=== PATIENT | male | born 1945 | race Caucasian/White ===

== ENCOUNTER 2019-01-02 16:15 | Inpatient (IN) | payer MEDICARE ==
[~2019-01-02] VITALS: Ht 182.9 cm; Wt 150.8 kg
[~2019-01-02 16:15] MED LIST: PIPERACILLIN/TAZOBACTAM 3.375 GM in IV NORMAL SALINE 50ML 50 ML IV SCH
[2019-01-02] MEDS ORDERED: FUROSEMIDE 40 MG/4 ML VIAL. IVP ONE (17:00)
[2019-01-02] MEDS ORDERED: PIPERACILLIN/TAZOBACTAM 3.375 GM in IV NORMAL SALINE 50ML 50 ML IV ONE (17:15)
[2019-01-02] MEDS ORDERED: VANCOMYCIN 1GM IVPB FOR OMNI 250 ML IV ONE (17:15)
--- NOTE | 2019-01-02 17:15 | PHYS DOC ---
Adult General Chief Complaint Chief Complaint: OTHER COMPLAINTS HPI HPI 73-year-old male presents with scrotal swelling and pain. He's noticed some redness to the scrotum. He's also been unable to urinate for the last 12-24 hours he states he just leaks urine out. He states he has tried to use some emollient to help with the swelling but this has made it worse. He denies any fever chills or sweats. He states he is not sure if he is a diabetic he's never been tested that he knows of.[] (PETR GLOVER DO) Review of Systems Review of Systems Constitutional: Denies fever or chills [] Eyes: Denies change in visual acuity, redness, or eye pain [] HENT: Denies nasal congestion or sore throat [] Respiratory: Denies cough or shortness of breath [] Cardiovascular: No additional information not addressed in HPI [] GI: Denies abdominal pain, nausea, vomiting, bloody stools or diarrhea [] : Scrotal swelling[] Musculoskeletal: Denies back pain or joint pain [] Integument: Denies rash or skin lesions [] Neurologic: Denies headache, focal weakness or sensory changes [] Endocrine: Denies polyuria or polydipsia [] All other systems were reviewed and found to be within normal limits, except as documented in this note. (PETR GLOVER DO) Current Medications Current Medications Current Medications Medications (Trade) Dose Ordered Sig/Harsha Start Time Stop Time Status Last Admin Dose Admin Furosemide (Lasix) 80 mg 1X ONCE 01/02/19 17:00 01/02/19 17:01 DC 01/02/19 17:40 80 MG Piperacillin Sod/ Tazobactam Sod 3.375 gm/Sodium Chloride 50 ml @ 100 mls/hr 1X ONCE 01/02/19 17:15 01/02/19 17:44 DC 01/02/19 18:35 100 MLS/HR Sodium Chloride 1,000 ml @ 1,000 mls/hr 1X ONCE 01/02/19 19:30 01/02/19 20:29 01/02/19 19:48 1,000 MLS/HR Vancomycin HCl 250 ml @ 250 mls/hr 1X ONCE 01/02/19 17:15 01/02/19 18:14 DC 01/02/19 19:28 250 MLS/HR (VICTORINO MCMANUS MD) Allergies Allergies Allergies Coded Allergies Type Severity Reaction Last Updated Verified No Known Drug Allergies 06/21/14 No (VICTORINO MCMANUS MD) Physical Exam Physical Exam Constitutional: Well developed, well nourished, moderate distress, non-toxic appearance. [] HENT: Normocephalic, atraumatic, bilateral external ears normal, oropharynx moist, no oral exudates, nose normal. [] Eyes: PERRLA, EOMI, conjunctiva normal, no discharge. [] Neck: Normal range of motion, no tenderness, supple, no stridor. [] Cardiovascular:Heart rate regular rhythm, no murmur [] Lungs & Thorax: Bilateral breath sounds clear to auscultation [] Abdomen: Bowel sounds normal, soft, no tenderness, no masses, no pulsatile masses. [] : Patient's scrotum is remarkably swollen and erythematous tender to touch no obvious subcutaneous air he also has significant swelling and edema of the foreskin Skin: Warm, dry, no erythema, no rash. [] Back: No tenderness, no CVA tenderness. [] Extremities: No tenderness, no cyanosis, no clubbing, ROM intact, no edema. [] Neurologic: Alert and oriented X 3, normal motor function, normal sensory functi on, no focal deficits noted. [] Psychologic: Anxious[] (PETR GLOVER DO) Current Patient Data Vital Signs Vital Signs Date Time Temp Pulse Resp B/P (MAP) Pulse Ox O2 Delivery O2 Flow Rate FiO2 01/02/19 18:21 100 184/101 (128) 95 Room Air 01/02/19 18:02 24 01/02/19 16:18 97.9 97.9 (VICTORINO MCMANUS MD) Lab Values Laboratory Tests Test 01/02/19 17:25 01/02/19 17:37 White Blood Count 9.5 x10^3/uL (4.0-11.0) Red Blood Count 4.47 x10^6/uL (4.30-5.70) Hemoglobin 12.9 g/dL (13.0-17.5) L Hematocrit 38.8 % (39.0-53.0) L Mean Corpuscular Volume 87 fL (79-100) Mean Corpuscular Hemoglobin 29 pg (25-35) Mean Corpuscular Hemoglobin Concent 33 g/dL (31-37) Red Cell Distribution Width 17.7 % (11.5-14.5) H Platelet Count 348 x10^3/uL (140-400) Neutrophils (%) (Auto) 85 % (31-73) H Lymphocytes (%) (Auto) 8 % (24-48) L Monocytes (%) (Auto) 6 % (0-9) Eosinophils (%) (Auto) 1 % (0-3) Basophils (%) (Auto) 1 % (0-3) Neutrophils # (Auto) 8.1 x10^3/uL (1.8-7.7) H Lymphocytes # (Auto) 0.7 x10^3/uL (1.0-4.8) L Monocytes # (Auto) 0.5 x10^3/uL (0.0-1.1) Eosinophils # (Auto) 0.1 x10^3/uL (0.0-0.7) Basophils # (Auto) 0.1 x10^3/uL (0.0-0.2) Segmented Neutrophils % 87 % (35-66) H Lymphocytes % 9 % (24-48) L Monocytes % 3 % (0-10) Basophils % 1 % (0-3) Platelet Estimate Adequate (ADEQUATE) Sodium Level 146 mmol/L (136-145) H Potassium Level 4.1 mmol/L (3.5-5.1) Chloride Level 109 mmol/L (98-107) H Carbon Dioxide Level 21 mmol/L (21-32) Anion Gap 16 (6-14) H Blood Urea Nitrogen 21 mg/dL (8-26) Creatinine 2.2 mg/dL (0.7-1.3) H Estimated GFR (Cockcroft-Gault) 29.3 BUN/Creatinine Ratio 10 (6-20) Glucose Level 111 mg/dL (70-99) H Lactic Acid Level 2.0 mmol/L (0.4-2.0) Calcium Level 10.8 mg/dL (8.5-10.1) H Magnesium Level 1.7 mg/dL (1.8-2.4) L Total Bilirubin 0.6 mg/dL (0.2-1.0) Aspartate Amino Transferase (AST) 14 U/L (15-37) L Alanine Aminotransferase (ALT) 15 U/L (16-63) L Alkaline Phosphatase 82 U/L (46-116) Total Protein 7.6 g/dL (6.4-8.2) Albumin 3.7 g/dL (3.4-5.0) Albumin/Globulin Ratio 0.9 (1.0-1.7) L Urine Collection Type U cath Urine Color Yellow Urine Clarity Clear Urine pH 5.0 Urine Specific [place] 1.015 Urine Protein Negative mg/dL (NEG-TRACE) Urine Glucose (UA) Negative mg/dL (NEG) Urine Ketones (Stick) Negative mg/dL (NEG) Urine Blood Negative (NEG) Urine Nitrite Negative (NEG) Urine Bilirubin Negative (NEG) Urine Urobilinogen Dipstick 0.2 mg/dL (0.2 mg/dL) Urine Leukocyte Esterase Large (NEG) Urine RBC Occ /HPF (0-2) Urine WBC 20-40 /HPF (0-4) Urine Transitional Epithelial Cells Occ /LPF Urine Bacteria Few /HPF (0-FEW) Urine Hyaline Casts Moderate /HPF Urine Mucus Marked /LPF Laboratory Tests 01/02/19 17:25 Laboratory Tests 01/02/19 17:25 (VICTORINO MCMANUS MD) EKG EKG [] (PETR GLOVER DO) Radiology/Procedures Radiology/Procedures [] (PETR GLOVER DO) Course & Med Decision Making Course & Med Decision Making Pertinent Labs and Imaging studies reviewed. (See chart for details) [ED course: Evaluation reveals an elderly overweight male with a significantly swollen and erythematous scrotum that is very tender to palp. Certainly the diagnosis of Johanna's gangrene has to be taken into consideration. Hopefully this is third spacing of fluids however starting treatment aggressively with IV antibiotics blood cultures and lactic acid. He will also have an ultrasound and a CT of his scrotum to make sure there is no evidence of a necrotizing fasciitis I will pass this patient off to Dr. Victorino Mcmanus at 5:30 PM for final dis position.] (PETR GLOVER DO) Course & Med Decision Making TECHNIQUE: Multiple axial CT images of the pelvis were obtained without intravenous contrast. Coronal and sagittal reformats are provided. FINDINGS: There is aneurysm of the infrarenal abdominal aorta measuring 4.0 x 3.8 cm. Aneurysm of the right common iliac artery measures 3.0 cm. No pathologically enlarged pelvic lymph nodes. There is no free fluid or free intraperitoneal air. Small and large bowel loops are normal in caliber. No evidence for bowel obstruction. Mild diverticulosis. Appendix is normal. Urinary bladder wall is mildly thickened. Mcgraw catheter is in place. Prostate is enlarged measuring 6.3 x 5.8 cm in transaxial dimensions. Small left inguinal hernia containing fat. Diffuse scrotal swelling with significant subcutaneous edema and no gas is identified within the subcutaneous soft tissues. No suspicious osseous abnormality is identified. IMPRESSION: 1. Diffuse scrotal soft tissue swelling with subcutaneous edema most suggestive of cellulitis. No CT evidence for Johanna gangrene. 2. Abdominal aortic aneurysm measuring 4.0 x 3.8 cm. 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 3. Prostatomegaly. 4. Small left inguinal hernia containing fat. Electronically signed by: Rad Aldrich MD (01/02/2019 7:15 PM) [facility] DICTATED and SIGNED BY: RAD ALDRICH MD DATE: 01/02/191914 I EXAMINED THE PATIENT THERE IS NO CLINICAL INVOLVEMENT OF PERINEUM. FIVE DAYS OF SYMPTOMS, CLINICALLY STABLE. NO CT EVIDENCE OF GAS I DOUBT FOURNIERS, D/W SEGURA, IV ABX INITIATED ROUTINE UROLOGY CONSULT NOTED (VICTORINO MCMANUS MD) Dragon Disclaimer Dragon Disclaimer This electronic medical record was generated, in whole or in part, using a voice recognition dictation system. (PETR GLOVER DO) Departure Departure Impression: Primary Impression: Cellulitis, scrotum Disposition: ADMITTED INPATIENT Admitting Physician: Kalia Segura (VICTORINO MCMANUS MD) Condition: STABLE Referrals: KALIA SEGURA MD (PCP) PETR GLOVER DO Jan 02, 2019 17:15 VICTORINO MCMANUS MD Jan 02, 2019 19:55
[2019-01-02 17:36] LABS: BASO # 0.1 x10^3/uL (0.0-0.2); BASO % 1 % (0-3); EOS # 0.1 x10^3/uL (0.0-0.7); EOS % 1 % (0-3); HEMATOCRIT 38.8 % (39.0-53.0); HEMOGLOBIN 12.9 g/dL (13.0-17.5); LYMPH # 0.7 x10^3/uL (1.0-4.8); LYMPH % 8 % (24-48); MEAN CORPUSCULAR HEMOGLOBIN 29 pg (25-35); MEAN CORPUSCULAR HGB CONC 33 g/dL (31-37); MEAN CORPUSCULAR VOLUME 87 fL (79-100); MONO # 0.5 x10^3/uL (0.0-1.1); MONO % 6 % (0-9); NEUT # 8.1 x10^3/uL (1.8-7.7); NEUT % 85 % (31-73); PLATELET COUNT 348 x10^3/uL (140-400); RED BLOOD COUNT 4.47 x10^6/uL (4.30-5.70); RED CELL DISTRIBUTION WIDTH 17.7 % (11.5-14.5); WHITE BLOOD COUNT 9.5 x10^3/uL (4.0-11.0)
[2019-01-02 17:52] LABS: % BASOS 1 % (0-3); % LYMPHS 9 % (24-48); % MONOS 3 % (0-10); % SEGS 87 % (35-66)
[2019-01-02 17:55] LABS: PLT ESTIMATE ADEQUATE (ADEQUATE)
[2019-01-02 17:57] LABS: BILIRUBIN,URINE NEGATIVE (NEG); CLARITY,URINE CLEAR; COLOR,URINE YELLOW; NITRITE,URINE NEGATIVE (NEG); PROTEIN,URINE NEGATIVE (NEG-TRACE); UROBILINOGEN,URINE 0.2 mg/dL (0.2 mg/dL)
[2019-01-02 18:02] LABS: CALCIUM 10.8 mg/dL (8.5-10.1); CREATININE 2.2 mg/dL (0.7-1.3); GFR 29.3; POTASSIUM 4.1 mmol/L (3.5-5.1)
[2019-01-02 18:07] LABS: ALBUMIN 3.7 g/dL (3.4-5.0); ALBUMIN/GLOBULIN RATIO 0.9 (1.0-1.7); MAGNESIUM 1.7 mg/dL (1.8-2.4); TOTAL BILIRUBIN 0.6 mg/dL (0.2-1.0); TOTAL PROTEIN 7.6 g/dL (6.4-8.2)
[2019-01-02 18:12] LABS: BACTERIA,URINE FEW /HPF (0-FEW); HYALINE CASTS, URINE MODERATE /HPF; RBC,URINE OCC /HPF (0-2); WBC,URINE 20-40 /HPF (0-4)
--- NOTE | 2019-01-02 18:57 | RAD ---
TESTICULAR/SCROTUM: 01/02/2019 6:16 PM INDICATION: 73 years old Male. Swollen testicles. COMPARISON: None. FINDINGS: Right: Extensive subcutaneous edema is identified with skin thickening measuring up to 8 mm. Testicle: Normal in echotexture without focal lesion. Size: 4.0 x 2.7 x 2.4 cm. Flow: Normal color Doppler flow pattern. Epididymis: 5 mm right epididymal cyst is identified. Hydrocele: None. Varicocele: None. Left: Testicle: Normal in echotexture without focal lesion. Size: 3.7 x 2.6 x 2.5 cm. Flow: Normal color Doppler flow pattern. Epididymis: Normal in size and echotexture without focal lesion. Hydrocele: None. Varicocele: None. IMPRESSION: Perfusion is noted the testicles bilaterally at the time of imaging. Extensive subcutaneous edema and skin thickening is identified which is nonspecific and may be associated with cellulitis or systemic inflammation. No definite gas is identified by ultrasound although plain films or CT may be more specific. Electronically signed by: Alpa Narvaez MD (01/02/2019 6:54 PM) [facility]
--- NOTE | 2019-01-02 19:18 | RAD ---
PQRS Compliance Statement: One or more of the following individualized dose reduction techniques were utilized for this examination: 1. Automated exposure control 2. Adjustment of the mA and/or kV according to patient size 3. Use of iterative reconstruction technique CT pelvis without contrast 01/02/2019 INDICATION: Scrotal swelling. COMPARISON: Testicular ultrasound January 02, 2019 TECHNIQUE: Multiple axial CT images of the pelvis were obtained without intravenous contrast. Coronal and sagittal reformats are provided. FINDINGS: There is aneurysm of the infrarenal abdominal aorta measuring 4.0 x 3.8 cm. Aneurysm of the right common iliac artery measures 3.0 cm. No pathologically enlarged pelvic lymph nodes. There is no free fluid or free intraperitoneal air. Small and large bowel loops are normal in caliber. No evidence for bowel obstruction. Mild diverticulosis. Appendix is normal. Urinary bladder wall is mildly thickened. Mcgraw catheter is in place. Prostate is enlarged measuring 6.3 x 5.8 cm in transaxial dimensions. Small left inguinal hernia containing fat. Diffuse scrotal swelling with significant subcutaneous edema and no gas is identified within the subcutaneous soft tissues. No suspicious osseous abnormality is identified. IMPRESSION: 1. Diffuse scrotal soft tissue swelling with subcutaneous edema most suggestive of cellulitis. No CT evidence for Johanna gangrene. 2. Abdominal aortic aneurysm measuring 4.0 x 3.8 cm. 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 3. Prostatomegaly. 4. Small left inguinal hernia containing fat. Electronically signed by: Alpa Narvaez MD (01/02/2019 7:15 PM) [facility]
[2019-01-02] MEDS ORDERED: IV NORMAL SALINE 1000ML BAG 1,000 ML IV ONE (19:30)
[2019-01-02] MEDS ORDERED: MORPHINE SULFATE 2 MG/ML VIAL. IV PRN (20:15)
[2019-01-02 21:40] VITALS: BP 153/102
[2019-01-02 23:00] VITALS: BP 158/100
[2019-01-02] MEDS ORDERED: VANCOMYCIN 1 GM in IV NORMAL SALINE 250ML 250 ML IV ONE (23:00)
[2019-01-03] MEDS: VANCOMYCIN PER PHARMACY MC PRN (00:28)
--- NOTE | 2019-01-03 00:29 | NUR ---
Pharmacy Vancomycin Dosing Note S:Consulted to monitor and dose vancomycin started 01/02/19. O:ARUN MALONE is a 73 year old M with Cellulitis . Height: 6 feet, 0 inches Weight: 140.049511 kg [place] Body Weight: 77.60 Adjusted Body Weight: 102.56 Dosing Weight: Actual Other Antibiotics: ZOSYN 3.375 GM Q6H LABS: Last BUN: 21 Last Creatinine: 2.2 Creatinine Clearance: 42 mL/min Last WBC: 9.5 Last Procalcitonin: Tmax (past 24 hours): Microbiology: I/O: Drug Levels: Last level: on at Last dose given 01/03/19 at 2200 Vancomycin Dosing: Loading Dose: 2000 mg x1 Dosing Weight: Actual Target Trough: 10-20 A: Based on: WT AND CRCL P: 1. Begin Vancomycin 2000 mg IV q24h 2. Follow up Trough level on 01/04/19 at 2130 3. Pharmacy will continue to monitor, follow and adjust therapy as needed. ALBINA HINOJOSA RPH, 01/03/19 0029 Signed: 01/03/19 at 0029 by ALBINA HINOJOSA RPH PHA
[2019-01-03] MEDS: PIPERACILLIN/TAZOBACTAM 3.375 GM in IV NORMAL SALINE 50ML 50 ML IV SCH ×5 (01:13→23:49)
[2019-01-03] MEDS: IV NORMAL SALINE 1000ML BAG 1,000 ML IV SCH ×2 (01:13→08:58)
[2019-01-03 01:33] LABS: BASO # 0.1 x10^3/uL (0.0-0.2); BASO % 1 % (0-3); EOS # 0.2 x10^3/uL (0.0-0.7); EOS % 1 % (0-3); HEMATOCRIT 39.1 % (39.0-53.0); HEMOGLOBIN 12.9 g/dL (13.0-17.5); LYMPH % 8 % (24-48); MEAN CORPUSCULAR HEMOGLOBIN 29 pg (25-35); MEAN CORPUSCULAR HGB CONC 33 g/dL (31-37); MEAN CORPUSCULAR VOLUME 87 fL (79-100); MONO # 0.9 x10^3/uL (0.0-1.1); MONO % 7 % (0-9); NEUT # 10.8 x10^3/uL (1.8-7.7); NEUT % 83 % (31-73); PLATELET COUNT 350 x10^3/uL (140-400); RED BLOOD COUNT 4.48 x10^6/uL (4.30-5.70); RED CELL DISTRIBUTION WIDTH 16.8 % (11.5-14.5)
[2019-01-03 01:46] LABS: CALCIUM 10.1 mg/dL (8.5-10.1); CREATININE 2.1 mg/dL (0.7-1.3); GFR 30.9; POTASSIUM 3.9 mmol/L (3.5-5.1)
[2019-01-03 03:00] VITALS: BP 149/99
[2019-01-03] MEDS ORDERED: METO-247 PO (03:31)
[2019-01-03] MEDS ORDERED: LISI-334 PO (03:31)
[2019-01-03] MEDS ORDERED: ASPI325T8 PO (03:31)
[2019-01-03] MEDS ORDERED: AMLO2.5T5 PO (03:31)
[2019-01-03] MEDS ORDERED: ATOR20TA58 PO (03:31)
[2019-01-03] MEDS ORDERED: HEPARIN for SUB-Q USE 5,000 UNIT/ML VIAL. SQ SCH (09:00)
--- NOTE | 2019-01-03 09:16 | PDOC2 ---
JANACHRISTOPHEROlayinka Vela APRN 01/03/19 0916: UROLOGY CONSULT Date of Consult Date of Consult DATE: 01/03/19 TIME: 09:15 Reason for Consult Reason for Consult: Hematuria and Urinary retention Identification/Chief Complaint Chief Complaint Hematuria, urinary retention Source Source: Chart review, Patient History of Present Illness Reason for Visit: This pleasant 73 year old gentleman presented through the ER for Scrotal edema, hematuria and inability to urinate for 12-24 hours. He reports this is the first time anything like this has happened to him and he normally does not have any trouble with LUTS or dysuria; this is also the first time he has had any hematuria. He has no history of BPH or prostate cancer that he is aware of. However, his uncle did have prostate cancer and he thinks that his father may have had it, but he is not sure. He has no history of kidney stones or kidney problems that he is aware of and the catheter seems to be working well and is not bothering him this morning. Social History Quit (12 years ago; prior to that smoked 1-1.5 packs per day) ALCOHOL: rare Drugs: None Current Problem List Problems: (1) Scrotal swelling (2) Cellulitis, scrotum Current Medications Current Medications Current Medications Furosemide (Lasix) 80 mg 1X ONCE IVP Last administered on 01/02/19at 17:40; Start 01/02/19 at 17:00; Stop 01/02/19 at 17:01; Status DC Heparin Sodium (Porcine) (Heparin Sodium) 5,000 unit Q12HR SQ ; Start 01/03/19 at 09:00 Morphine Sulfate (Morphine Sulfate) 2 mg PRN Q2HR PRN IV PAIN; Start 01/02/19 at 20:15; Stop 01/03/19 at 20:14 Piperacillin Sod/ Tazobactam Sod 3.375 gm/Sodium Chloride 50 ml @ 100 mls/hr 1X ONCE IV Last administered on 01/02/19at 18:35; Start 01/02/19 at 17:15; Stop 01/02/19 at 17:44; Status DC Piperacillin Sod/ Tazobactam Sod 3.375 gm/Sodium Chloride 50 ml @ 100 mls/hr Q6HRS IV Last administered on 01/03/19at 01:13; Start 01/03/19 at 00:00 Sodium Chloride 1,000 ml @ 75 mls/hr [id number] IV Last administered on 01/03/19at 01:13; Start 01/02/19 at 20:04; Stop 01/03/19 at 20:03 Sodium Chloride 1,000 ml @ 1,000 mls/hr 1X ONCE IV Last administered on at 19:48; Start 01/02/19 at 19:30; Stop 01/02/19 at 20:29; Status DC Vancomycin HCl 250 ml @ 250 mls/hr 1X ONCE IV Last administered on 01/02/19at 19:28; Start 01/02/19 at 17:15; Stop 01/02/19 at 18:14; Status DC Vancomycin HCl (Vanco Per Pharmacy) 1 each PRN DAILY PRN MC SEE COMMENTS Last administered on 01/03/19at 00:28; Start 01/02/19 at 22:45 Vancomycin HCl (Vancomycin Trough Level) 1 each 1X ONCE MC ; Start 01/04/19 at 21:30; Stop 01/04/19 at 21:31 Vancomycin HCl 1 gm/Sodium Chloride 250 ml @ 250 mls/hr 1X ONCE IV Last administered on 01/02/19at 23:42; Start 01/02/19 at 23:00; Stop 01/02/19 at 23:59; Status DC Vancomycin HCl 2 gm/Sodium Chloride 500 ml @ 250 mls/hr Q24H IV ; Start 01/03/19 at 22:00 Allergies Allergies: Coded Allergies: No Known Drug Allergies (Unverified , 06/21/14) ROS Review Of Systems: CONSTITUTIONAL: No fever or chills EYES: No recent changes SKIN: No rash or itching CARDIOVASCULAR: No chest pain, syncope, palpitations, or edema RESPIRATORY: No SOB or cough GASTROINTESTINAL: No nausea, vomiting or abdominal pain NEUROLOGICAL: No headaches or weakness ENDOCRINE: No cold or heat intolerance GENITOURINARY: No urgency or frequency of urination, + scrotal swelling and hematuria MUSCULOSKELETAL: No back pain or joint pain LYMPHATICS: No enlarged lymph nodes PSYCHIATRIC: No anxiety or depression Physical Exam Physical Exam: General: Pleasant, no acute distress, well groomed Eyes: conjunctiva anicteric, eyes full range of motion ENT: moist oral mucosa, normal dentition Neck: Trachea midline, no masses Respiratory: unlabored breathing, not using accessory muscles, Abdomen: nontender, soft, obese : +Scrotal swelling noted; unable to appreciate scrotal contents with simple exam due to this No open areas or drainage noted. + Mcgraw catheter in place draining red-tinged urine with occ small clots. Device in good working order. Skin: no rashes or skin lesions on visualized skin Psych: normal mood, affect. Alert and oriented x 3. Vitals VITALS Vital Signs Date Time Temp Pulse Resp B/P (MAP) Pulse Ox O2 Delivery O2 Flow Rate FiO2 01/03/19 03:00 98.6 88 18 149/99 (116) 95 Room Air 98.6 Labs Labs Laboratory Tests Test 01/02/19 17:25 01/02/19 17:37 01/03/19 01:25 White Blood Count 9.5 x10^3/uL (4.0-11.0) 13.0 x10^3/uL (4.0-11.0) Red Blood Count 4.47 x10^6/uL (4.30-5.70) 4.48 x10^6/uL (4.30-5.70) Hemoglobin 12.9 g/dL (13.0-17.5) 12.9 g/dL (13.0-17.5) Hematocrit 38.8 % (39.0-53.0) 39.1 % (39.0-53.0) Mean Corpuscular Volume 87 fL (79-100) 87 fL (79-100) Mean Corpuscular Hemoglobin 29 pg (25-35) 29 pg (25-35) Mean Corpuscular Hemoglobin Concent 33 g/dL (31-37) 33 g/dL (31-37) Red Cell Distribution Width 17.7 % (11.5-14.5) 16.8 % (11.5-14.5) Platelet Count 348 x10^3/uL (140-400) 350 x10^3/uL (140-400) Neutrophils (%) (Auto) 85 % (31-73) 83 % (31-73) Lymphocytes (%) (Auto) 8 % (24-48) 8 % (24-48) Monocytes (%) (Auto) 6 % (0-9) 7 % (0-9) Eosinophils (%) (Auto) 1 % (0-3) 1 % (0-3) Basophils (%) (Auto) 1 % (0-3) 1 % (0-3) Neutrophils # (Auto) 8.1 x10^3/uL (1.8-7.7) 10.8 x10^3/uL (1.8-7.7) Lymphocytes # (Auto) 0.7 x10^3/uL (1.0-4.8) 1.0 x10^3/uL (1.0-4.8) Monocytes # (Auto) 0.5 x10^3/uL (0.0-1.1) 0.9 x10^3/uL (0.0-1.1) Eosinophils # (Auto) 0.1 x10^3/uL (0.0-0.7) 0.2 x10^3/uL (0.0-0.7) Basophils # (Auto) 0.1 x10^3/uL (0.0-0.2) 0.1 x10^3/uL (0.0-0.2) Segmented Neutrophils % 87 % (35-66) Lymphocytes % 9 % (24-48) Monocytes % 3 % (0-10) Basophils % 1 % (0-3) Platelet Estimate Adequate (ADEQUATE) Sodium Level 146 mmol/L (136-145) 143 mmol/L (136-145) Potassium Level 4.1 mmol/L (3.5-5.1) 3.9 mmol/L (3.5-5.1) Chloride Level 109 mmol/L (98-107) 106 mmol/L (98-107) Carbon Dioxide Level 21 mmol/L (21-32) 25 mmol/L (21-32) Anion Gap 16 (6-14) 12 (6-14) Blood Urea Nitrogen 21 mg/dL (8-26) 22 mg/dL (8-26) Creatinine 2.2 mg/dL (0.7-1.3) 2.1 mg/dL (0.7-1.3) Estimated GFR (Cockcroft-Gault) 29.3 30.9 BUN/Creatinine Ratio 10 (6-20) Glucose Level 111 mg/dL (70-99) 119 mg/dL (70-99) Lactic Acid Level 2.0 mmol/L (0.4-2.0) 1.3 mmol/L (0.4-2.0) Calcium Level 10.8 mg/dL (8.5-10.1) 10.1 mg/dL (8.5-10.1) Magnesium Level 1.7 mg/dL (1.8-2.4) Total Bilirubin 0.6 mg/dL (0.2-1.0) Aspartate Amino Transf (AST/SGOT) 14 U/L (15-37) Alanine Aminotransferase (ALT/SGPT) 15 U/L (16-63) Alkaline Phosphatase 82 U/L (46-116) Total Protein 7.6 g/dL (6.4-8.2) Albumin 3.7 g/dL (3.4-5.0) Albumin/Globulin Ratio 0.9 (1.0-1.7) Urine Collection Type U cath Urine Color Yellow Urine Clarity Clear Urine pH 5.0 Urine Specific [place] 1.015 Urine Protein Negative mg/dL (NEG-TRACE) Urine Glucose (UA) Negative mg/dL (NEG) Urine Ketones (Stick) Negative mg/dL (NEG) Urine Blood Negative (NEG) Urine Nitrite Negative (NEG) Urine Bilirubin Negative (NEG) Urine Urobilinogen Dipstick 0.2 mg/dL (0.2 mg/dL) Urine Leukocyte Esterase Large (NEG) Urine RBC Occ /HPF (0-2) Urine WBC 20-40 /HPF (0-4) Urine Transitional Epithelial Cells Occ /LPF Urine Bacteria Few /HPF (0-FEW) Urine Hyaline Casts Moderate /HPF Urine Mucus Marked /LPF Laboratory Tests Test 01/02/19 17:25 01/02/19 17:37 01/03/19 01:25 White Blood Count 9.5 x10^3/uL (4.0-11.0) 13.0 x10^3/uL (4.0-11.0) Red Blood Count 4.47 x10^6/uL (4.30-5.70) 4.48 x10^6/uL (4.30-5.70) Hemoglobin 12.9 g/dL (13.0-17.5) 12.9 g/dL (13.0-17.5) Hematocrit 38.8 % (39.0-53.0) 39.1 % (39.0-53.0) Mean Corpuscular Volume 87 fL (79-100) 87 fL (79-100) Mean Corpuscular Hemoglobin 29 pg (25-35) 29 pg (25-35) Mean Corpuscular Hemoglobin Concent 33 g/dL (31-37) 33 g/dL (31-37) Red Cell Distribution Width 17.7 % (11.5-14.5) 16.8 % (11.5-14.5) Platelet Count 348 x10^3/uL (140-400) 350 x10^3/uL (140-400) Neutrophils (%) (Auto) 85 % (31-73) 83 % (31-73) Lymphocytes (%) (Auto) 8 % (24-48) 8 % (24-48) Monocytes (%) (Auto) 6 % (0-9) 7 % (0-9) Eosinophils (%) (Auto) 1 % (0-3) 1 % (0-3) Basophils (%) (Auto) 1 % (0-3) 1 % (0-3) Neutrophils # (Auto) 8.1 x10^3/uL (1.8-7.7) 10.8 x10^3/uL (1.8-7.7) Lymphocytes # (Auto) 0.7 x10^3/uL (1.0-4.8) 1.0 x10^3/uL (1.0-4.8) Monocytes # (Auto) 0.5 x10^3/uL (0.0-1.1) 0.9 x10^3/uL (0.0-1.1) Eosinophils # (Auto) 0.1 x10^3/uL (0.0-0.7) 0.2 x10^3/uL (0.0-0.7) Basophils # (Auto) 0.1 x10^3/uL (0.0-0.2) 0.1 x10^3/uL (0.0-0.2) Segmented Neutrophils % 87 % (35-66) Lymphocytes % 9 % (24-48) Monocytes % 3 % (0-10) Basophils % 1 % (0-3) Platelet Estimate Adequate (ADEQUATE) Sodium Level 146 mmol/L (136-145) 143 mmol/L (136-145) Potassium Level 4.1 mmol/L (3.5-5.1) 3.9 mmol/L (3.5-5.1) Chloride Level 109 mmol/L (98-107) 106 mmol/L (98-107) Carbon Dioxide Level 21 mmol/L (21-32) 25 mmol/L (21-32) Anion Gap 16 (6-14) 12 (6-14) Blood Urea Nitrogen 21 mg/dL (8-26) 22 mg/dL (8-26) Creatinine 2.2 mg/dL (0.7-1.3) 2.1 mg/dL (0.7-1.3) Estimated GFR (Cockcroft-Gault) 29.3 30.9 BUN/Creatinine Ratio 10 (6-20) Glucose Level 111 mg/dL (70-99) 119 mg/dL (70-99) Lactic Acid Level 2.0 mmol/L (0.4-2.0) 1.3 mmol/L (0.4-2.0) Calcium Level 10.8 mg/dL (8.5-10.1) 10.1 mg/dL (8.5-10.1) Magnesium Level 1.7 mg/dL (1.8-2.4) Total Bilirubin 0.6 mg/dL (0.2-1.0) Aspartate Amino Transf (AST/SGOT) 14 U/L (15-37) Alanine Aminotransferase (ALT/SGPT) 15 U/L (16-63) Alkaline Phosphatase 82 U/L (46-116) Total Protein 7.6 g/dL (6.4-8.2) Albumin 3.7 g/dL (3.4-5.0) Albumin/Globulin Ratio 0.9 (1.0-1.7) Urine Collection Type U cath Urine Color Yellow Urine Clarity Clear Urine pH 5.0 Urine Specific [place] 1.015 Urine Protein Negative mg/dL (NEG-TRACE) Urine Glucose (UA) Negative mg/dL (NEG) Urine Ketones (Stick) Negative mg/dL (NEG) Urine Blood Negative (NEG) Urine Nitrite Negative (NEG) Urine Bilirubin Negative (NEG) Urine Urobilinogen Dipstick 0.2 mg/dL (0.2 mg/dL) Urine Leukocyte Esterase Large (NEG) Urine RBC Occ /HPF (0-2) Urine WBC 20-40 /HPF (0-4) Urine Transitional Epithelial Cells Occ /LPF Urine Bacteria Few /HPF (0-FEW) Urine Hyaline Casts Moderate /HPF Urine Mucus Marked /LPF Images Images CT PELVIS WITHOUT CONTRAST IMPRESSION: 1. Diffuse scrotal soft tissue swelling with subcutaneous edema most suggestive of cellulitis. No CT evidence for Johanna gangrene. 2. Abdominal aortic aneurysm measuring 4.0 x 3.8 cm. 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 3. Prostatomegaly. 4. Small left inguinal hernia containing fat. US ABD/SCROTUM IMPRESSION: Perfusion is noted the testicles bilaterally at the time of imaging. Extensive subcutaneous edema and skin thickening is identified which is nonspecific and may be associated with cellulitis or systemic inflammation. No definite gas is identified by ultrasound although plain films or CT may be more specific. Assessment/Plan Assessment/Plan Elevate scrotum with rolled towels to promote drainage Imaging reviewed: No findings that warrant surgical intervention, just gen eralized edema noted. Currently catheter draining red tinged urine with a few small clots. Device working well. Monitor for now. Hematuria likely from catheter insertion trauma. Continue Zosyn and Vanc per medical team. Nursing may apply ice to scrotum PRN discomfort. Will follow MOMO SHEFFIELD MD 01/04/19 0851: UROLOGY CONSULT Assessment/Plan Assessment/Plan have seen patient and reviewed chart. I rec conservative therapy as outlined above. CHRISTOPHER BATES IS TECHNICIAN Jan 03, 2019 09:16 MOMO SHEFFIELD MD Jan 04, 2019 08:51
--- NOTE | 2019-01-03 10:23 | PDOC ---
Provider Note Provider Note Pt seen.H&P dictated.#[id number] NORBERTO NAJERA MD Jan 03, 2019 10:23
[2019-01-03] MEDS: amLODIPine BESYLATE 5 MG TABLET PO SCH (10:41)
[2019-01-03] MEDS: METOPROLOL SUCC 24HR ER 100 MG TAB.ER.24H. PO SCH (10:41)
[2019-01-03] MEDS: FUROSEMIDE 20 MG/2 ML VIAL. IVP SCH ×2 (10:43→14:06)
--- NOTE | 2019-01-03 10:53 | EKG ---
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
[2019-01-03 11:00] VITALS: BP 125/64
[2019-01-03] MEDS ORDERED: MAGNESIUM SULFATE 2GM 50 ML IV ONE (11:00)
--- NOTE | 2019-01-03 11:16 | PDOC2 ---
CONSULT Date of Consult Date of Consult DATE: 01/03/19 TIME: 11:14 Identification/Chief Complaint Chief Complaint Scrotal swelling and Incontinence Source Source: Chart review, Patient History of Present Illness Reason for Visit: 73-year-old C male presents with scrotal swelling and pain. He's noticed some redness to the scrotum. He's also been unable to urinate for the last 12-24 hours he states he just leaks urine out. He states he has tried to use some emollient to help with the swelling but this has made it worse. He denies any fever chills or sweats. He states he is not sure if he is a diabetic he's never been tested that he knows of. He denies NSAID use . He denies any kidney issues or nephrolithiasis He had a CT scan of the pelvis and ultrasound of the scrotum shows a prostate enlargement and a soft tissue infection. He was admitted to the hospital, was given IV antibiotics. Mcgraw catheter was placed in the Emergency Room. There was bloody tinged urine after that. Urology has been consulted. Renal/ imaging not done Social History Quit (12 years ago; prior to that smoked 1-1.5 packs per day) ALCOHOL: rare Drugs: None Current Problem List Problem List Problems Medical Problems: (1) Cellulitis, scrotum Status: Acute (2) Scrotal swelling Status: Acute Current Medications Current Medications Current Medications Furosemide (Lasix) 80 mg 1X ONCE IVP Last administered on 01/02/19at 17:40; Start 01/02/19 at 17:00; Stop 01/02/19 at 17:01; Status DC Piperacillin Sod/ Tazobactam Sod 3.375 gm/Sodium Chloride 50 ml @ 100 mls/hr 1X ONCE IV Last administered on 01/02/19at 18:35; Start 01/02/19 at 17:15; Stop at 17:44; Status DC Vancomycin HCl 250 ml @ 250 mls/hr 1X ONCE IV Last administered on 01/02/19at 19:28; Start 01/02/19 at 17:15; Stop 01/02/19 at 18:14; Status DC Sodium Chloride 1,000 ml @ 1,000 mls/hr 1X ONCE IV Last administered on 01/02/19at 19:48; Start 01/02/19 at 19:30; Stop 01/02/19 at 20:29; Status DC Morphine Sulfate (Morphine Sulfate) 2 mg PRN Q2HR PRN IV PAIN; Start 01/02/19 at 20:15; Stop 01/03/19 at 20:14 Sodium Chloride 1,000 ml @ 75 mls/hr [id number] IV Last administered on 01/03/19at 01:13; Start 01/02/19 at 20:04; Stop 01/03/19 at 10:17; Status DC Piperacillin Sod/ Tazobactam Sod 3.375 gm/Sodium Chloride 50 ml @ 100 mls/hr Q6HRS IV ; Start 01/02/19 at 00:00; Status Cancel Vancomycin HCl (Vanco Per Pharmacy) 1 each PRN DAILY PRN MC SEE COMMENTS Last administered on 01/03/19at 00:28; Start 01/02/19 at 22:45 Heparin Sodium (Porcine) (Heparin Sodium) 5,000 unit Q12HR SQ ; Start 01/03/19 at 09:00; Stop 01/03/19 at 10:17; Status DC Vancomycin HCl 1 gm/Sodium Chloride 250 ml @ 250 mls/hr 1X ONCE IV Last administered on 01/02/19at 23:42; Start 01/02/19 at 23:00; Stop 01/02/19 at 23:59; Status DC Piperacillin Sod/ Tazobactam Sod 3.375 gm/Sodium Chloride 50 ml @ 100 mls/hr Q6HRS IV Last administered on 01/03/19at 01:13; Start 01/03/19 at 00:00 Vancomycin HCl 2 gm/Sodium Chloride 500 ml @ 250 mls/hr Q24H IV ; Start 01/03/19 at 22:00 Vancomycin HCl (Vancomycin Trough Level) 1 each 1X ONCE MC ; Start 01/04/19 at 21:30; Stop 01/04/19 at 21:31 Atorvastatin Calcium (Lipitor) 20 mg HS PO ; Start 01/03/19 at 21:00 Lisinopril (Prinivil) 20 mg HS PO ; Start 01/03/19 at 21:00 Metoprolol Succinate (Toprol Xl) 100 mg DAILY PO Last administered on 01/03/19at 10:41; Start 01/03/19 at 11:00 Amlodipine Besylate (Norvasc) 2.5 mg DAILY PO Last administered on 01/03/19at 10:41; Start 01/03/19 at 11:00 Furosemide (Lasix) 20 mg [id number] IVP Last administered on 01/03/19at 10:43; Start 01/03/19 at 10:15 Magnesium Sulfate 50 ml @ 25 mls/hr 1X ONCE IV ; Start 01/03/19 at 11:00; Stop 01/03/19 at 12:59 Active Scripts Active Reported Lisinopril 20 Mg Tablet 1 Tab PO HS Amlodipine Besylate 2.5 Mg Tablet 2.5 Mg PO DAILY Atorvastatin Calcium 20 Mg Tablet 1 Tab PO HS Aspirin 325 Mg Tablet 1 Tab PO DAILY Metoprolol Succinate ( Xl ) (Metoprolol Succinate) 100 Mg Tab.er.24h 1 Tab PO DAILY Allergies Allergies: Coded Allergies: No Known Drug Allergies (Unverified , 06/21/14) ROS Review of System Per HPI Physical Exam Physical Exam GENERAL: The patient is not in any distress, pleasant. GEN- Sitting in chair , NAD HEENT: OM moist NECK: Supple. CARDIOVASCULAR: S1, S2. LUNGS: CTA, Non labored ABDOMEN: Soft, obese Scrotum is large , Mcgraw + EXTREMITIES: Changes of CVI+ NEUROLOGIC: Grossly verna; SKIN No rash, Erythema LE Vital Signs Vital Signs Date Time Temp Pulse Resp B/P (MAP) Pulse Ox O2 Delivery O2 Flow Rate FiO2 01/03/19 11:00 97.6 84 20 125/64 (84) 97 Room Air 97.6 Assessment & Plan ? TERENCE or CKD - per primary care baseline renal function 2.1 Pt denies any hx of CKD, follows with Dr. jan Charles Stable , UOP recorded as ? 7550 (? CBI) Monitor renal unction, supportive care , renal US Scrotal swelling with cellulitis Benign prostatic hypertrophy with symptoms of overflow, distention. Mcgraw catheter was placed. Urology managing Congestive heart failure, new onset. On IV Lasix and Lisinopril - CXr no e/o Congestion Cardiology managing Hypertension.- BP stable Abdominal aortic aneurysm measuring 4.0 x 3.8 cm. 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 Labs Labs Laboratory Tests Test 01/02/19 17:25 01/02/19 17:37 01/03/19 01:25 White Blood Count 9.5 x10^3/uL (4.0-11.0) 13.0 x10^3/uL (4.0-11.0) Red Blood Count 4.47 x10^6/uL (4.30-5.70) 4.48 x10^6/uL (4.30-5.70) Hemoglobin 12.9 g/dL (13.0-17.5) 12.9 g/dL (13.0-17.5) Hematocrit 38.8 % (39.0-53.0) 39.1 % (39.0-53.0) Mean Corpuscular Volume 87 fL (79-100) 87 fL (79-100) Mean Corpuscular Hemoglobin 29 pg (25-35) 29 pg (25-35) Mean Corpuscular Hemoglobin Concent 33 g/dL (31-37) 33 g/dL (31-37) Red Cell Distribution Width 17.7 % (11.5-14.5) 16.8 % (11.5-14.5) Platelet Count 348 x10^3/uL (140-400) 350 x10^3/uL (140-400) Neutrophils (%) (Auto) 85 % (31-73) 83 % (31-73) Lymphocytes (%) (Auto) 8 % (24-48) 8 % (24-48) Monocytes (%) (Auto) 6 % (0-9) 7 % (0-9) Eosinophils (%) (Auto) 1 % (0-3) 1 % (0-3) Basophils (%) (Auto) 1 % (0-3) 1 % (0-3) Neutrophils # (Auto) 8.1 x10^3/uL (1.8-7.7) 10.8 x10^3/uL (1.8-7.7) Lymphocytes # (Auto) 0.7 x10^3/uL (1.0-4.8) 1.0 x10^3/uL (1.0-4.8) Monocytes # (Auto) 0.5 x10^3/uL (0.0-1.1) 0.9 x10^3/uL (0.0-1.1) Eosinophils # (Auto) 0.1 x10^3/uL (0.0-0.7) 0.2 x10^3/uL (0.0-0.7) Basophils # (Auto) 0.1 x10^3/uL (0.0-0.2) 0.1 x10^3/uL (0.0-0.2) Segmented Neutrophils % 87 % (35-66) Lymphocytes % 9 % (24-48) Monocytes % 3 % (0-10) Basophils % 1 % (0-3) Platelet Estimate Adequate (ADEQUATE) Sodium Level 146 mmol/L (136-145) 143 mmol/L (136-145) Potassium Level 4.1 mmol/L (3.5-5.1) 3.9 mmol/L (3.5-5.1) Chloride Level 109 mmol/L (98-107) 106 mmol/L (98-107) Carbon Dioxide Level 21 mmol/L (21-32) 25 mmol/L (21-32) Anion Gap 16 (6-14) 12 (6-14) Blood Urea Nitrogen 21 mg/dL (8-26) 22 mg/dL (8-26) Creatinine 2.2 mg/dL (0.7-1.3) 2.1 mg/dL (0.7-1.3) Estimated GFR (Cockcroft-Gault) 29.3 30.9 BUN/Creatinine Ratio 10 (6-20) Glucose Level 111 mg/dL (70-99) 119 mg/dL (70-99) Lactic Acid Level 2.0 mmol/L (0.4-2.0) 1.3 mmol/L (0.4-2.0) Calcium Level 10.8 mg/dL (8.5-10.1) 10.1 mg/dL (8.5-10.1) Magnesium Level 1.7 mg/dL (1.8-2.4) Total Bilirubin 0.6 mg/dL (0.2-1.0) Aspartate Amino Transf (AST/SGOT) 14 U/L (15-37) Alanine Aminotransferase (ALT/SGPT) 15 U/L (16-63) Alkaline Phosphatase 82 U/L (46-116) Total Protein 7.6 g/dL (6.4-8.2) Albumin 3.7 g/dL (3.4-5.0) Albumin/Globulin Ratio 0.9 (1.0-1.7) Urine Collection Type U cath Urine Color Yellow Urine Clarity Clear Urine pH 5.0 Urine Specific [place] 1.015 Urine Protein Negative mg/dL (NEG-TRACE) Urine Glucose (UA) Negative mg/dL (NEG) Urine Ketones (Stick) Negative mg/dL (NEG) Urine Blood Negative (NEG) Urine Nitrite Negative (NEG) Urine Bilirubin Negative (NEG) Urine Urobilinogen Dipstick 0.2 mg/dL (0.2 mg/dL) Urine Leukocyte Esterase Large (NEG) Urine RBC Occ /HPF (0-2) Urine WBC 20-40 /HPF (0-4) Urine Transitional Epithelial Cells Occ /LPF Urine Bacteria Few /HPF (0-FEW) Urine Hyaline Casts Moderate /HPF Urine Mucus Marked /LPF Laboratory Tests Test 01/02/19 17:25 01/02/19 17:37 01/03/19 01:25 White Blood Count 9.5 x10^3/uL (4.0-11.0) 13.0 x10^3/uL (4.0-11.0) Red Blood Count 4.47 x10^6/uL (4.30-5.70) 4.48 x10^6/uL (4.30-5.70) Hemoglobin 12.9 g/dL (13.0-17.5) 12.9 g/dL (13.0-17.5) Hematocrit 38.8 % (39.0-53.0) 39.1 % (39.0-53.0) Mean Corpuscular Volume 87 fL (79-100) 87 fL (79-100) Mean Corpuscular Hemoglobin 29 pg (25-35) 29 pg (25-35) Mean Corpuscular Hemoglobin Concent 33 g/dL (31-37) 33 g/dL (31-37) Red Cell Distribution Width 17.7 % (11.5-14.5) 16.8 % (11.5-14.5) Platelet Count 348 x10^3/uL (140-400) 350 x10^3/uL (140-400) Neutrophils (%) (Auto) 85 % (31-73) 83 % (31-73) Lymphocytes (%) (Auto) 8 % (24-48) 8 % (24-48) Monocytes (%) (Auto) 6 % (0-9) 7 % (0-9) Eosinophils (%) (Auto) 1 % (0-3) 1 % (0-3) Basophils (%) (Auto) 1 % (0-3) 1 % (0-3) Neutrophils # (Auto) 8.1 x10^3/uL (1.8-7.7) 10.8 x10^3/uL (1.8-7.7) Lymphocytes # (Auto) 0.7 x10^3/uL (1.0-4.8) 1.0 x10^3/uL (1.0-4.8) Monocytes # (Auto) 0.5 x10^3/uL (0.0-1.1) 0.9 x10^3/uL (0.0-1.1) Eosinophils # (Auto) 0.1 x10^3/uL (0.0-0.7) 0.2 x10^3/uL (0.0-0.7) Basophils # (Auto) 0.1 x10^3/uL (0.0-0.2) 0.1 x10^3/uL (0.0-0.2) Segmented Neutrophils % 87 % (35-66) Lymphocytes % 9 % (24-48) Monocytes % 3 % (0-10) Basophils % 1 % (0-3) Platelet Estimate Adequate (ADEQUATE) Sodium Level 146 mmol/L (136-145) 143 mmol/L (136-145) Potassium Level 4.1 mmol/L (3.5-5.1) 3.9 mmol/L (3.5-5.1) Chloride Level 109 mmol/L (98-107) 106 mmol/L (98-107) Carbon Dioxide Level 21 mmol/L (21-32) 25 mmol/L (21-32) Anion Gap 16 (6-14) 12 (6-14) Blood Urea Nitrogen 21 mg/dL (8-26) 22 mg/dL (8-26) Creatinine 2.2 mg/dL (0.7-1.3) 2.1 mg/dL (0.7-1.3) Estimated GFR (Cockcroft-Gault) 29.3 30.9 BUN/Creatinine Ratio 10 (6-20) Glucose Level 111 mg/dL (70-99) 119 mg/dL (70-99) Lactic Acid Level 2.0 mmol/L (0.4-2.0) 1.3 mmol/L (0.4-2.0) Calcium Level 10.8 mg/dL (8.5-10.1) 10.1 mg/dL (8.5-10.1) Magnesium Level 1.7 mg/dL (1.8-2.4) Total Bilirubin 0.6 mg/dL (0.2-1.0) Aspartate Amino Transf (AST/SGOT) 14 U/L (15-37) Alanine Aminotransferase (ALT/SGPT) 15 U/L (16-63) Alkaline Phosphatase 82 U/L (46-116) Total Protein 7.6 g/dL (6.4-8.2) Albumin 3.7 g/dL (3.4-5.0) Albumin/Globulin Ratio 0.9 (1.0-1.7) Urine Collection Type U cath Urine Color Yellow Urine Clarity Clear Urine pH 5.0 Urine Specific [place] 1.015 Urine Protein Negative mg/dL (NEG-TRACE) Urine Glucose (UA) Negative mg/dL (NEG) Urine Ketones (Stick) Negative mg/dL (NEG) Urine Blood Negative (NEG) Urine Nitrite Negative (NEG) Urine Bilirubin Negative (NEG) Urine Urobilinogen Dipstick 0.2 mg/dL (0.2 mg/dL) Urine Leukocyte Esterase Large (NEG) Urine RBC Occ /HPF (0-2) Urine WBC 20-40 /HPF (0-4) Urine Transitional Epithelial Cells Occ /LPF Urine Bacteria Few /HPF (0-FEW) Urine Hyaline Casts Moderate /HPF Urine Mucus Marked /LPF Review All relevant outside records, renal labs, imaging studies, telemetry/EKG's were reviewed. BEV REYES MD Jan 03, 2019 11:16
--- NOTE | 2019-01-03 11:22 | HP ---
ADMIT DATE: 01/02/2019 MEDICAL HISTORY AND PHYSICAL PATIENT LOCATION: 436. REASON FOR ADMISSION TO THE HOSPITAL: Cellulitis of the scrotum, unable to urinate, BPH and the patient has to have a Mcgraw catheter placed in the Emergency Room and also found to have cellulitis of the scrotum, was admitted to the hospital for IV antibiotics and Urology consultation. HISTORY OF PRESENT ILLNESS: The patient is a 73-year-old male patient who has a history of hypertension and states he also has problem with prostate on and off and for the last one week, he was having swelling all over the body, extremities, scrotum was swollen. He developed redness and is hard for him to pee, he is dribbling. He came to the Emergency Room and the patient had a CT scan of the pelvis and ultrasound of the scrotum shows a prostate enlargement and a soft tissue infection. He was admitted to the hospital, was given IV antibiotics. Mcgraw catheter was placed in the Emergency Room. There was bloody tinged urine after that. Urology was consulted. PAST MEDICAL HISTORY: History of hypertension, hyperlipidemia. He says he was told he had some heart failure, but has seen [facility] in the past. PAST SURGICAL HISTORY: He denies any pacemaker, cardiac stents, heart bypass. ALLERGIES: No known drug allergies. MEDICATIONS AT HOME: The patient is on aspirin 325 daily, amlodipine 2.5 daily, atorvastatin 20 mg daily, lisinopril 20 mg daily, metoprolol 100 mg daily. PERSONAL HISTORY: Denies alcohol. SOCIAL HISTORY: Lives at home. REVIEW OF SYSTEMS: Fourteen-system review: CARDIAC: Denies chest pain. GASTROINTESTINAL: No nausea or vomiting. Complains of swelling of the extremities, scrotal swelling and difficulty in urinating. Rest of the 14-system was reviewed and negative. PHYSICAL EXAMINATION: GENERAL: The patient is not in any distress, pleasant. VITAL SIGNS: Temperature 98, pulse 114, respirations 11, blood pressure 153/98, and 95% on room air. HEENT: Head is atraumatic. Pupils equal. Oral cavity: No congestion. NECK: Supple. Thyroid not enlarged. JVD not elevated. CHEST: Symmetrical. CARDIOVASCULAR: S1, S2. LUNGS: Few crackles at the base. ABDOMEN: Soft, bowel sounds present, no mass palpable. EXTERNAL GENITALIA: Scrotum is large, redness and the patient has a Mcgraw catheter placed in the ER. There was bloody urine draining from the tube. RECTAL: Deferred. EXTREMITIES: 2+ edema all the way up to the thighs. Foot, no ulcerations. NEUROLOGIC: Moving all extremities. No focal deficits noted. LABORATORY DATA: Shows a white count of 9, hemoglobin 13, platelets 348. Electrolytes show sodium 146, potassium 4.1, chloride 109, bicarbonate 21, BUN 21, creatinine 2.2, glucose 111. Lactic acid was 2, came down to 1.3, magnesium 1.7. LFTs normal. Urine shows 20-40 wbc, large leukocyte esterase. He had a CT of the abdomen and testicular sonogram shows a soft tissue swelling. CT scan of the abdomen and the pelvis shows abdominal aortic aneurysm 4 x 4 cm, left inguinal hernia, scrotal swelling. FINAL IMPRESSION: 1. Scrotal swelling with cellulitis. 2. Benign prostatic hypertrophy with symptoms of overflow, distention. Mcgraw catheter was placed. The patient has some bloody tinged urine from trauma. 3. Congestive heart failure, new onset. 4. Hypertension. 5. Hyperlipidemia. 6. Chronic kidney disease, creatinine 2.1. 7. AAA 4 cm seize PLAN: At this time, was to admit to hospital. Had a Mcgraw catheter placed. Urine cultures done, started on vancomycin and Zosyn and Urology was consulted. Also, have a renal consult and a Cardiology consult for heart failure. Echocardiogram and follow up on Lovenox and aspirin for the time being secondary to hematuria and see if the patient's condition improves. NORBERTO NAJERA MD DR: DOREEN/narayan JOB#: [id number] / [id number] KALIA Allen MD
--- NOTE | 2019-01-03 11:35 | PDOC2 ---
[facility] [employer] 01/03/19 1135: CARDIAC CONSULT DATE OF CONSULT Date of Consult DATE: 01/03/19 TIME: 11:34 REASON FOR CONSULT Reason for Consult: CHF REFERRING PHYSICIAN Referring Physician: Kameron SOURCE Source: Chart review, Patient HISTORY OF PRESENT ILLNESS HISTORY OF PRESENT ILLNESS This is a pleasant 73 yo male admitted for complains of scrotal swelling, Reports that he had this scrotal swelling for about 6 days now. Positive for urinary frequency. No fever or chills. Also has exertional dyspnea but he has had this for a while and no associated chest pain salthough his activity tolerance is low and does not exercise. He does have chronic leg swelling. but no pain. Reports no palpitations. No orthopnea, PND and no palpitations. He does not remember having recent stress test but has had LHC in 1998 which he could not recall what it was but no reported stents. He does not anything about aneurysm. He did tell me that he has an enlarged heart. He has been skipping his meds as well and has been told of MATIAS in the past but does not use any machine. PAST MEDICAL HISTORY Cardiovascular: HTN Pulmonary: Other (MATIAS) CENTRAL NERVOUS SYSTEM: Periperal neuropathy Musculoskeletal: Osteoarthritis PAST SURGICAL HISTORY Past Surgical History: Hernia Repair, Other (vasectomy) FAMILY HISTORY Family History: Coronary Artery Disease (father) SOCIAL HISTORY Smoke: Quit (remotely 30 pk yr) ALCOHOL: none Drugs: None Lives: Alone CURRENT MEDICATIONS CURRENT MEDICATIONS Current Medications Medications (Trade) Dose Ordered Sig/Harsha Route PRN Reason Start Time Stop Time Status Last Admin Dose Admin Furosemide (Lasix) 80 mg 1X ONCE IVP 01/02/19 17:00 01/02/19 17:01 DC 01/02/19 17:40 Piperacillin Sod/ Tazobactam Sod 3.375 gm/Sodium Chloride 50 ml @ 100 mls/hr 1X ONCE IV 01/02/19 17:15 01/02/19 17:44 DC 01/02/19 18:35 Vancomycin HCl 250 ml @ 250 mls/hr 1X ONCE IV 01/02/19 17:15 01/02/19 18:14 DC 01/02/19 19:28 Sodium Chloride 1,000 ml @ 1,000 mls/hr 1X ONCE IV 01/02/19 19:30 01/02/19 20:29 DC 01/02/19 19:48 Sodium Chloride 1,000 ml @ 75 mls/hr [id number] IV 01/02/19 20:04 01/03/19 10:17 DC 01/03/19 01:13 Vancomycin HCl (Vanco Per Pharmacy) 1 each PRN DAILY PRN MC SEE COMMENTS 01/02/19 22:45 01/03/19 00:28 Vancomycin HCl 1 gm/Sodium Chloride 250 ml @ 250 mls/hr 1X ONCE IV 01/02/19 23:00 01/02/19 23:59 DC 01/02/19 23:42 Piperacillin Sod/ Tazobactam Sod 3.375 gm/Sodium Chloride 50 ml @ 100 mls/hr Q6HRS IV 01/03/19 00:00 01/03/19 01:13 Metoprolol Succinate (Toprol Xl) 100 mg DAILY PO 01/03/19 11:00 01/03/19 10:41 Amlodipine Besylate (Norvasc) 2.5 mg DAILY PO 01/03/19 11:00 01/03/19 10:41 Furosemide (Lasix) 20 mg [id number] IVP 01/03/19 10:15 01/03/19 10:43 Magnesium Sulfate 50 ml @ 25 mls/hr 1X ONCE IV 01/03/19 11:00 01/03/19 12:59 01/03/19 11:22 ALLERGIES ALLERGIES: Coded Allergies: No Known Drug Allergies (Unverified , 06/21/14) ROS Review of System 14 point ROS evaluated with pertinent positives noted per HPI PHYSICAL EXAM General: Alert, Oriented X3, Cooperative, No acute distress HEENT: Atraumatic, Mucous membr. moist/pink Lungs: Clear to auscultation, Normal air movement Heart: Regular rate, No murmurs Abdomen: Soft, No tenderness Skin: Other (LE venous dermatitis) Neuro: Normal speech, Sensation intact Psych/Mental Status: Mental status NL, Mood NL MUSCULOSKELETAL: Osteoarthritic changes both hands VITALS/I&O VITALS/I&O: Vital Signs Date Time Temp Pulse Resp B/P (MAP) Pulse Ox O2 Delivery O2 Flow Rate FiO2 01/03/19 11:00 97.6 84 20 125/64 (84) 97 Room Air 97.6 I & O 01/02/19 01/02/19 01/03/19 15:00 23:00 07:00 Intake Total 350 ml Output Total 5650 ml 1900 ml Balance -5300 ml -1900 ml LABS Lab: Laboratory Tests Test 01/02/19 17:25 01/02/19 17:37 01/03/19 01:25 White Blood Count 9.5 x10^3/uL (4.0-11.0) 13.0 x10^3/uL (4.0-11.0) H Red Blood Count 4.47 x10^6/uL (4.30-5.70) 4.48 x10^6/uL (4.30-5.70) Hemoglobin 12.9 g/dL (13.0-17.5) L 12.9 g/dL (13.0-17.5) L Hematocrit 38.8 % (39.0-53.0) L 39.1 % (39.0-53.0) Mean Corpuscular Volume 87 fL (79-100) 87 fL (79-100) Mean Corpuscular Hemoglobin 29 pg (25-35) 29 pg (25-35) Mean Corpuscular Hemoglobin Concent 33 g/dL (31-37) 33 g/dL (31-37) Red Cell Distribution Width 17.7 % (11.5-14.5) H 16.8 % (11.5-14.5) H Platelet Count 348 x10^3/uL (140-400) 350 x10^3/uL (140-400) Neutrophils (%) (Auto) 85 % (31-73) H 83 % (31-73) H Lymphocytes (%) (Auto) 8 % (24-48) L 8 % (24-48) L Monocytes (%) (Auto) 6 % (0-9) 7 % (0-9) Eosinophils (%) (Auto) 1 % (0-3) 1 % (0-3) Basophils (%) (Auto) 1 % (0-3) 1 % (0-3) Neutrophils # (Auto) 8.1 x10^3/uL (1.8-7.7) H 10.8 x10^3/uL (1.8-7.7) H Lymphocytes # (Auto) 0.7 x10^3/uL (1.0-4.8) L 1.0 x10^3/uL (1.0-4.8) Monocytes # (Auto) 0.5 x10^3/uL (0.0-1.1) 0.9 x10^3/uL (0.0-1.1) Eosinophils # (Auto) 0.1 x10^3/uL (0.0-0.7) 0.2 x10^3/uL (0.0-0.7) Basophils # (Auto) 0.1 x10^3/uL (0.0-0.2) 0.1 x10^3/uL (0.0-0.2) Segmented Neutrophils % 87 % (35-66) H Lymphocytes % 9 % (24-48) L Monocytes % 3 % (0-10) Basophils % 1 % (0-3) Platelet Estimate Adequate (ADEQUATE) Sodium Level 146 mmol/L (136-145) H 143 mmol/L (136-145) Potassium Level 4.1 mmol/L (3.5-5.1) 3.9 mmol/L (3.5-5.1) Chloride Level 109 mmol/L (98-107) H 106 mmol/L (98-107) Carbon Dioxide Level 21 mmol/L (21-32) 25 mmol/L (21-32) Anion Gap 16 (6-14) H 12 (6-14) Blood Urea Nitrogen 21 mg/dL (8-26) 22 mg/dL (8-26) Creatinine 2.2 mg/dL (0.7-1.3) H 2.1 mg/dL (0.7-1.3) H Estimated GFR (Cockcroft-Gault) 29.3 30.9 BUN/Creatinine Ratio 10 (6-20) Glucose Level 111 mg/dL (70-99) H 119 mg/dL (70-99) H Lactic Acid Level 2.0 mmol/L (0.4-2.0) 1.3 mmol/L (0.4-2.0) Calcium Level 10.8 mg/dL (8.5-10.1) H 10.1 mg/dL (8.5-10.1) Magnesium Level 1.7 mg/dL (1.8-2.4) L Total Bilirubin 0.6 mg/dL (0.2-1.0) Aspartate Amino Transferase (AST) 14 U/L (15-37) L Alanine Aminotransferase (ALT) 15 U/L (16-63) L Alkaline Phosphatase 82 U/L (46-116) Total Protein 7.6 g/dL (6.4-8.2) Albumin 3.7 g/dL (3.4-5.0) Albumin/Globulin Ratio 0.9 (1.0-1.7) L Urine Collection Type U cath Urine Color Yellow Urine Clarity Clear Urine pH 5.0 Urine Specific [place] 1.015 Urine Protein Negative mg/dL (NEG-TRACE) Urine Glucose (UA) Negative mg/dL (NEG) Urine Ketones (Stick) Negative mg/dL (NEG) Urine Blood Negative (NEG) Urine Nitrite Negative (NEG) Urine Bilirubin Negative (NEG) Urine Urobilinogen Dipstick 0.2 mg/dL (0.2 mg/dL) Urine Leukocyte Esterase Large (NEG) Urine RBC Occ /HPF (0-2) Urine WBC 20-40 /HPF (0-4) Urine Transitional Epithelial Cells Occ /LPF Urine Bacteria Few /HPF (0-FEW) Urine Hyaline Casts Moderate /HPF Urine Mucus Marked /LPF Laboratory Tests 01/02/19 17:25 01/03/19 01:25 Laboratory Tests 01/02/19 17:25 01/03/19 01:25 ASSESSMENT/PLAN ASSESSMENT/PLAN 1. Urinary retention/hematuria/scrotal swelling: urology following 2. Suspect COPD no acute CHF 3. Chronic leg edema with venous insufficiency 4. Small infrarenal AAA with RCIA aneurysm 5. Noncompliance 6. MATIAS Recommendations 1. TTE has been ordered. Check EKG. 2. Will need outpt referral to vascular surgery 3. Restart home BP meds. TRELL CHAVEZ MD 01/03/19 1612: CARDIAC CONSULT ASSESSMENT/PLAN ASSESSMENT/PLAN Pt. seen and examined. Agree with above [employer] note. Severe acute on chronic decompensated diastolic HF due to med non-compliance and salt intake. Continue diuresis. Aim for 2 L over next 24 hours. Supportive care. Thanks MARY MATA APRN Jan 03, 2019 11:35 TRELL CHAVEZ MD Jan 03, 2019 16:12
[2019-01-03 11:59] LABS: CHOLESTEROL/HDL RATIO 3.1
--- NOTE | 2019-01-03 14:20 | CARD ---
MR#: [id number] Date of Study: 01/03/2019 Ordering Physician: NORBERTO NAJERA, Referring Physician: KALIA GARCIA Tech: Ofelia Becerril RDCS APPROVED REPORT EXAM: Two-dimensional and M-mode echocardiogram with Doppler and color Doppler. Other Information Quality : Fair Technically limited study due to body habitus. INDICATION Congestive Heart Failure 2D DIMENSIONS Left Atrium(2D)3.3 (1.6-4.0cm)IVSd1.4 (0.7-1.1cm) Aortic Root(2D)3.5 (2.0-3.7cm)LVDd4.4 (3.9-5.9cm) LVOT Diameter2.4 (1.8-2.4cm)PWd1.2 (0.7-1.1cm) LVDs3.2 (2.5-4.0cm)FS (%) 26.4 % SV45.6 mlLVEF(%)52.0 (>50%) Aortic Valve AoV Peak Maxi.182.2cm/sAoV VTI28.1cm AO Peak GR.13.3mmHgLVOT Peak Maxi.136.9cm/s AO Mean GR.7mmHgAVA (VMAX)3.47cm2 TELLO (VTI)4.86ku6MT P 1/2 Vtad126pv Mitral Valve MV E Lelnnevk31.3cm/sMV DECEL BLMV102ll MV A Actxidil904.6cm/sE/A Ratio0.6 Pulmonary Vein S1 Petzjbux21.5cm/sD2 Gslaiumf64.0cm/s LEFT VENTRICLE The left ventricle is normal size. There is mild concentric left ventricular hypertrophy. The left ve ntricular systolic function is normal and the ejection fraction is within normal range. The Ejection Fraction is 55-60%. There is normal LV segmental wall motion. Transmitral Doppler flow pattern is Gra de I-abnormal relaxation pattern. RIGHT VENTRICLE The right ventricle is normal size. The right ventricular systolic function is normal. ATRIA The left atrium size is normal. The right atrium size is normal. The interatrial septum is intact wit h no evidence for an atrial septal defect or patent foramen ovale as noted on 2-D or Doppler imaging. AORTIC VALVE The aortic valve is not well visualized. Doppler and Color Flow revealed trace to mild aortic regurgi tation. There is no significant aortic valvular stenosis. MITRAL VALVE The mitral valve is calcified but opens well. There is no evidence of mitral valve prolapse. There is no mitral valve stenosis. Doppler and Color Flow revealed no mitral valve regurgitation noted. TRICUSPID VALVE The tricuspid valve is normal in structure and function. Doppler and Color Flow revealed no tricuspid valve regurgitation noted. There is no tricuspid valve stenosis. PULMONIC VALVE The pulmonic valve is not well visualized. Doppler and Color Flow revealed no pulmonic valvular regur gitation. There is no pulmonic valvular stenosis. GREAT VESSELS The aortic root is normal in size. The ascending aorta is moderately dilated at 4.0 cm. The IVC is no rmal in size and collapses >50% with inspiration. PERICARDIAL EFFUSION There is no evidence of significant pericardial effusion. Critical Notification Critical Value: No <Conclusion> The left ventricular systolic function is normal and the ejection fraction is within normal range. Th e Ejection Fraction is 55-60%. There is normal LV segmental wall motion. Septal motion suggestive of conduction defect. The ascending aorta is moderately dilated at 4.0 cm. Technically difficult study. Signed by : Louie Gupta, Electronically Approved : 01/03/2019 14:19:52
--- NOTE | 2019-01-03 14:43 | RAD ---
EXAM: Chest, 2 views. HISTORY: Congestive heart failure. COMPARISON: None. FINDINGS: 2 views of the chest are obtained. There is no infiltrate, pleural effusion or pneumothorax. The heart is upper normal in size. IMPRESSION: No acute pulmonary finding. Electronically signed by: Nia Wolf MD (01/03/2019 2:40 PM) [facility]
[2019-01-03 15:03] VITALS: BP 142/71
--- NOTE | 2019-01-03 15:11 | NUR ---
SS following for discharge planning. SS reviewed pt chart. Pt is from home and is currently on room air. No discharge needs noted at this time. SS will continue to follow for discharge planning.
--- NOTE | 2019-01-03 15:36 | NUR ---
Wound Care: Wound care consult for R buttock wound, per pt, he developed that wound after a piece of glass was stuck to his jeans and he went to bed laying on it . See wound intervention. R buttock with a trauma/stage 3 PU, cleanse with wound wash, hydrocoloid and foam applied. Scrotum is swollen and red, cleanse with sani-wipes and Calazime cream applied, BLANCA, elevated with towels. No other wounds noted upon assessment. Pt encouraged to turn q2h. Wound care will follow up on 01/11.
--- NOTE | 2019-01-03 16:57 | RAD ---
EXAM: Renal sonogram. HISTORY: Renal failure. TECHNIQUE: Sonographic imaging of the kidneys and bladder was performed. COMPARISON: None. FINDINGS: The right kidney measures 11.0 cm [id number]. Left kidney measures 10.4 cm rylg-ol-jhyg. No solid or cystic renal lesion is seen. There is no hydronephrosis. There is a Mcgraw catheter within the urinary bladder. The exam is limited due to patient body habitus. The aorta and inferior vena cava are not assessed. IMPRESSION: Sonographically unremarkable kidneys, with evaluation limited due to body habitus. Electronically signed by: Nia Wolf MD (01/03/2019 4:54 PM) [place] [id number]
[2019-01-03 19:25] VITALS: BP 107/52
--- NOTE | 2019-01-03 20:35 | NUR ---
Spoke with patient's daughter re: patient's diagnosis and current plan of care, concerns addressed and questions answered. Pt's daughter is planning on travelling from [place] to visit pt tomorrow afternoon.
[2019-01-03] MEDS ORDERED: LISINOPRIL 20 MG TABLET PO SCH (21:00)
[2019-01-03] MEDS: ATORVASTATIN CALCIUM 20 MG TABLET PO SCH (21:27)
[2019-01-03] MEDS: VANCOMYCIN 2 GM in IV NORMAL SALINE 500ML BAG 500 ML IV SCH (21:33)
--- NOTE | 2019-01-03 23:10 | NUR ---
Patient's significant other called nurses' station d/t pt not answering cell phone in room and requested this nurse to go check on patient. Pt found in chair, watching TV, with cell phone on side table, when told his s/o was trying to reach him pt stated, "My phone ringer is broken, I will call her". This nurse relayed the message to pt's significant other. Pt remains in chair, will continue to monitor.
[2019-01-03 23:11] VITALS: BP 92/46
--- NOTE | 2019-01-03 23:50 | NUR ---
Patient continues to refuse to move from chair to bed despite this nurse educating pt on skin risks and the importance of elevating scrotum and bilateral lower extremities to decrease swelling. Pt stating, "I can't fall asleep in that bed, I like to sit in the chair" and adding, "I had my legs elevated awhile ago". Pt remains in chair at this time, will continue to encourage ambulation and monitor the patient.
[2019-01-03 23:54] VITALS: BP 116/58
[2019-01-04 03:44] VITALS: BP 108/47
[2019-01-04] MEDS: PIPERACILLIN/TAZOBACTAM 3.375 GM in IV NORMAL SALINE 50ML 50 ML IV SCH ×3 (05:41→16:50)
[2019-01-04 07:00] VITALS: BP 102/58
[2019-01-04] MEDS: METOPROLOL SUCC 24HR ER 100 MG TAB.ER.24H. PO SCH (08:32)
[2019-01-04] MEDS: amLODIPine BESYLATE 5 MG TABLET PO SCH (08:32)
[2019-01-04] MEDS: FUROSEMIDE 20 MG/2 ML VIAL. IVP SCH ×2 (08:33→12:49)
--- NOTE | 2019-01-04 09:57 | PDOC ---
IM PROGRESS NOTES- Subjective Subjective No pain or dyspnea. Objective Vitals/I&O Vital Signs Date Time Temp Pulse Resp B/P (MAP) Pulse Ox O2 Delivery O2 Flow Rate FiO2 01/04/19 08:32 69 102/58 01/04/19 07:37 Room Air 01/04/19 07:00 97.6 18 93 97.6 I & O 01/03/19 01/03/19 01/04/19 14:59 22:59 06:59 Intake Total 610 ml 1230 ml Output Total 2450 ml 1000 ml Balance -1840 ml 230 ml Physical Exam Physical Exam General appearance - alert,well appearing, and in no distress and oriented to person, place, and time Mental Status - alert, oriented to person, place, and time, affect appropriate to mood Head - normal Chest - clear to auscultation, no wheezes, rales or rhonchi, symmetric air entry Heart - S1 and S2 normal Abdomen - soft, nontender, nondistended, no masses or organomegaly scrotal edema with redness Neurological - alert and oriented Musculoskeletal - no muscular tenderness noted Extremities - no pedal edema Skin - warm and dry Meds Current Medications Medications (Trade) Dose Ordered Sig/Harsha Route PRN Reason Start Time Stop Time Status Last Admin Dose Admin Vancomycin HCl 2 gm/Sodium Chloride 500 ml @ 250 mls/hr Q24H IV 01/03/19 22:00 01/03/19 21:33 Atorvastatin Calcium (Lipitor) 20 mg HS PO 01/03/19 21:00 01/03/19 21:33 Metoprolol Succinate (Toprol Xl) 100 mg DAILY PO 01/03/19 11:00 01/03/19 10:41 Amlodipine Besylate (Norvasc) 2.5 mg DAILY PO 01/03/19 11:00 01/03/19 10:41 Furosemide (Lasix) 20 mg [id number] IVP 01/03/19 10:15 01/04/19 08:35 Magnesium Sulfate 50 ml @ 25 mls/hr 1X ONCE IV 01/03/19 11:00 01/03/19 12:59 DC 01/03/19 11:22 Assessment Assessment 1. Scrotal swelling with cellulitis. 2. Benign prostatic hypertrophy with symptoms of overflow, distention. George catheter was placed. The patient has some bloody tinged urine from trauma. 3. Congestive heart failure, new onset. 4. Hypertension. 5. Hyperlipidemia. 6. Chronic kidney disease, creatinine 2.1. 7. AAA 4 cm seize PLAN: At this time, was to admit to hospital. Scrotal cellulitis - Had a George catheter placed. Urine cultures done, started on vancomycin and Zosyn and Urology was consulted. Pelvic CT 1. Diffuse scrotal soft tissue swelling with subcutaneous edema most suggestive of cellulitis. No CT evidence for Johanna gangrene. 2. Abdominal aortic aneurysm measuring 4.0 x 3.8 cm. 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 3. Prostatomegaly. 4. Small left inguinal hernia containing fat. Also, have a renal consult and a Cardiology consult for heart failure. Echocardiogram and follow up on Lovenox and aspirin for the time being secondary to hematuria . Renal insufficiency- monitor. Hematuria- ? george cath trauma. Plan Plan For more details regarding further plans, please refer to the orders. KALIA GARCIA MD Jan 04, 2019 09:57
[2019-01-04 10:14] LABS: BASO # 0.1 x10^3/uL (0.0-0.2); BASO % 1 % (0-3); EOS # 0.6 x10^3/uL (0.0-0.7); EOS % 6 % (0-3); HEMATOCRIT 36.8 % (39.0-53.0); HEMOGLOBIN 12.2 g/dL (13.0-17.5); LYMPH # 1.1 x10^3/uL (1.0-4.8); LYMPH % 11 % (24-48); MEAN CORPUSCULAR HEMOGLOBIN 29 pg (25-35); MEAN CORPUSCULAR HGB CONC 33 g/dL (31-37); MEAN CORPUSCULAR VOLUME 88 fL (79-100); MONO # 0.7 x10^3/uL (0.0-1.1); MONO % 7 % (0-9); NEUT # 7.6 x10^3/uL (1.8-7.7); NEUT % 75 % (31-73); PLATELET COUNT 335 x10^3/uL (140-400); RED CELL DISTRIBUTION WIDTH 17.6 % (11.5-14.5); WHITE BLOOD COUNT 10.1 x10^3/uL (4.0-11.0)
[2019-01-04 10:28] LABS: CALCIUM 9.1 mg/dL (8.5-10.1); CREATININE 2.4 mg/dL (0.7-1.3); GFR 26.5; MAGNESIUM 1.9 mg/dL (1.8-2.4); POTASSIUM 3.4 mmol/L (3.5-5.1)
--- NOTE | 2019-01-04 10:35 | PDOC ---
SUBJECTIVE ROS Stable OBJECTIVE Vital Signs Vital Signs Date Time Temp Pulse Resp B/P (MAP) Pulse Ox O2 Delivery O2 Flow Rate FiO2 01/04/19 08:32 69 102/58 01/04/19 07:37 Room Air 01/04/19 07:00 97.6 18 93 97.6 I & 0 Intake and Output 01/04/19 07:00 Intake Total 1840 ml Output Total 3450 ml Balance -1610 ml Intake Oral 1090 ml IV Total 750 ml Output Urine Total 3450 ml PHYSICAL EXAM Physical Exam GENERAL: The patient is not in any distress, pleasant. GEN- Sitting in chair , NAD HEENT: OM moist NECK: Supple. CARDIOVASCULAR: S1, S2. LUNGS: CTA, Non labored ABDOMEN: Soft, obese Scrotum is large , Mcgraw + EXTREMITIES: Changes of CVI+ NEUROLOGIC: Grossly verna; SKIN No rash, Erythema LE DIAGNOSIS/ASSESSMENT Assessment & Plan ? TERENCE or CKD - per primary care baseline renal function 2.1 Pt denies any hx of CKD, follows with Dr. jan Charles Stable , UOP recorded as ? 7550 (? CBI) Monitor renal unction, supportive care , renal US Scrotal swelling with cellulitis Benign prostatic hypertrophy with symptoms of overflow, distention. Mcgraw catheter was placed. Urology managing Congestive heart failure, new onset. On IV Lasix and Lisinopril - CXr no e/o Congestion Cardiology managing Hypertension.- BP stable Abdominal aortic aneurysm measuring 4.0 x 3.8 cm. 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 ? UTI - per Primary COMMENT/RELEVANT DATA Meds Current Medications Medications (Trade) Dose Ordered Sig/Harsha Start Time Stop Time Status Last Admin Dose Admin Amlodipine Besylate (Norvasc) 2.5 mg DAILY 01/03/19 11:00 01/03/19 10:41 2.5 MG Atorvastatin Calcium (Lipitor) 20 mg HS 01/03/19 21:00 01/03/19 21:33 20 MG Furosemide (Lasix) 20 mg [id number] 01/03/19 10:15 01/04/19 08:35 20 MG Heparin Sodium (Porcine) (Heparin Sodium) 5,000 unit Q12HR 01/03/19 09:00 01/03/19 10:17 DC Lisinopril (Prinivil) 20 mg HS 01/03/19 21:00 Magnesium Sulfate 50 ml @ 25 mls/hr 1X ONCE 01/03/19 11:00 01/03/19 12:59 DC 01/03/19 11:22 25 MLS/HR Metoprolol Succinate (Toprol Xl) 100 mg DAILY 01/03/19 11:00 01/03/19 10:41 100 MG Morphine Sulfate (Morphine Sulfate) 2 mg PRN Q2HR PRN 01/02/19 20:15 01/03/19 20:14 DC Piperacillin Sod/ Tazobactam Sod 3.375 gm/Sodium Chloride 50 ml @ 100 mls/hr Q6HRS 01/03/19 00:00 01/04/19 05:41 100 MLS/HR Sodium Chloride 1,000 ml @ 75 mls/hr [id number] 01/02/19 20:04 01/03/19 10:17 DC 01/03/19 01:13 75 MLS/HR Vancomycin HCl (Vanco Per Pharmacy) 1 each PRN DAILY PRN 01/02/19 22:45 01/03/19 00:28 1 EACH Vancomycin HCl (Vancomycin Trough Level) 1 each 1X ONCE 01/04/19 21:30 01/04/19 21:31 Vancomycin HCl 1 gm/Sodium Chloride 250 ml @ 250 mls/hr 1X ONCE 01/02/19 23:00 01/02/19 23:59 DC 01/02/19 23:42 250 MLS/HR Vancomycin HCl 2 gm/Sodium Chloride 500 ml @ 250 mls/hr Q24H 01/03/19 22:00 01/03/19 21:33 250 MLS/HR Lab Laboratory Tests Test 01/04/19 09:28 White Blood Count 10.1 x10^3/uL (4.0-11.0) Red Blood Count 4.20 x10^6/uL (4.30-5.70) Hemoglobin 12.2 g/dL (13.0-17.5) Hematocrit 36.8 % (39.0-53.0) Mean Corpuscular Volume 88 fL (79-100) Mean Corpuscular Hemoglobin 29 pg (25-35) Mean Corpuscular Hemoglobin Concent 33 g/dL (31-37) Red Cell Distribution Width 17.6 % (11.5-14.5) Platelet Count 335 x10^3/uL (140-400) Neutrophils (%) (Auto) 75 % (31-73) Lymphocytes (%) (Auto) 11 % (24-48) Monocytes (%) (Auto) 7 % (0-9) Eosinophils (%) (Auto) 6 % (0-3) Basophils (%) (Auto) 1 % (0-3) Neutrophils # (Auto) 7.6 x10^3/uL (1.8-7.7) Lymphocytes # (Auto) 1.1 x10^3/uL (1.0-4.8) Monocytes # (Auto) 0.7 x10^3/uL (0.0-1.1) Eosinophils # (Auto) 0.6 x10^3/uL (0.0-0.7) Basophils # (Auto) 0.1 x10^3/uL (0.0-0.2) Sodium Level 142 mmol/L (136-145) Potassium Level 3.4 mmol/L (3.5-5.1) Chloride Level 104 mmol/L (98-107) Carbon Dioxide Level 26 mmol/L (21-32) Anion Gap 12 (6-14) Blood Urea Nitrogen 21 mg/dL (8-26) Creatinine 2.4 mg/dL (0.7-1.3) Estimated GFR (Cockcroft-Gault) 26.5 Glucose Level 125 mg/dL (70-99) Calcium Level 9.1 mg/dL (8.5-10.1) Magnesium Level 1.9 mg/dL (1.8-2.4) Results All relevant outside records, renal labs, imaging studies, telemetry/EKG's were reviewed. BEV REYES MD Jan 04, 2019 10:35
[2019-01-04 11:00] VITALS: BP 129/68
[2019-01-04] MEDS ORDERED: SENNOSIDES/DOCUSATE 8.6/50MG TABLET. PO PRN (11:00)
[2019-01-04] MEDS: POTASSIUM CHLORIDE 20 MEQ TABLET.ER. PO SCH (11:01)
[2019-01-04] MEDS: SENNOSIDES/DOCUSATE 8.6/50MG TABLET. PO SCH (11:01)
--- NOTE | 2019-01-04 12:27 | NUR ---
SS following up with discharge planning. PT/OT recommended custodial unit. SS met with pt to discuss custodial unit and discharge planning. 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 Pt reported that he can also go to his daughters house in [place] and stated that his daughter is a RN.
--- NOTE | 2019-01-04 13:00 | PDOC ---
PRISCILLA CHANG BOAT RIGGER 01/04/19 1300: CARDIO Progress Notes Date and Time Date of Service 01/04/19 Time of Evaluation 1220 Subjective Subjective: Other (scrotal swelling slightly better, but persists) Vitals Vitals Vital Signs Date Time Temp Pulse Resp B/P (MAP) Pulse Ox O2 Delivery O2 Flow Rate FiO2 01/04/19 11:00 97.8 67 18 129/68 (88) 98 Room Air 97.8 Weight Weight [ ] Input and Output Intake and Output Intake and Output 01/04/19 06:59 Intake Total 1840 ml Output Total 3450 ml Balance -1610 ml Intake Oral 1090 ml IV Total 750 ml Output Urine Total 3450 ml Laboratory Labs Laboratory Tests Test 01/04/19 09:28 White Blood Count 10.1 x10^3/uL (4.0-11.0) Red Blood Count 4.20 x10^6/uL (4.30-5.70) Hemoglobin 12.2 g/dL (13.0-17.5) Hematocrit 36.8 % (39.0-53.0) Mean Corpuscular Volume 88 fL (79-100) Mean Corpuscular Hemoglobin 29 pg (25-35) Mean Corpuscular Hemoglobin Concent 33 g/dL (31-37) Red Cell Distribution Width 17.6 % (11.5-14.5) Platelet Count 335 x10^3/uL (140-400) Neutrophils (%) (Auto) 75 % (31-73) Lymphocytes (%) (Auto) 11 % (24-48) Monocytes (%) (Auto) 7 % (0-9) Eosinophils (%) (Auto) 6 % (0-3) Basophils (%) (Auto) 1 % (0-3) Neutrophils # (Auto) 7.6 x10^3/uL (1.8-7.7) Lymphocytes # (Auto) 1.1 x10^3/uL (1.0-4.8) Monocytes # (Auto) 0.7 x10^3/uL (0.0-1.1) Eosinophils # (Auto) 0.6 x10^3/uL (0.0-0.7) Basophils # (Auto) 0.1 x10^3/uL (0.0-0.2) Sodium Level 142 mmol/L (136-145) Potassium Level 3.4 mmol/L (3.5-5.1) Chloride Level 104 mmol/L (98-107) Carbon Dioxide Level 26 mmol/L (21-32) Anion Gap 12 (6-14) Blood Urea Nitrogen 21 mg/dL (8-26) Creatinine 2.4 mg/dL (0.7-1.3) Estimated GFR (Cockcroft-Gault) 26.5 Glucose Level 125 mg/dL (70-99) Calcium Level 9.1 mg/dL (8.5-10.1) Magnesium Level 1.9 mg/dL (1.8-2.4) Microbiology Micro Microbiology 01/02/19 Blood Culture - Preliminary, Resulted NO GROWTH AFTER 1 DAY Physical Exam HEENT: Neck Supple W Full Motion Chest: Symmetric LUNGS: Clear to Auscultation Heart: S1S2, RRR Abdomen: Other (scrotal swelling and reddness) Extremities: Other (1+ bilateral LE edema ) Neurology: alert, oriented, follow commands Assessment Assessment 1. Urinary retention/hematuria/scrotal swelling: urology following 2. Acute on chronic diastolic HF; Echo showed LVEF 50-55% 3. Chronic leg edema with venous insufficiency 4. Ascending aorta aneurysm; moderately dilated at 4.0 cm. 5. Noncompliance 6. MATIAS 7. TERENCE on CKD Recommendations Lasix therapy Replace K Outpatient followup of AAA Supportive care TRELL CHAVEZ MD 01/04/19 8430: CARDIO Progress Notes Plan Plan Patient seen and examined. Agree with above nurse practitioner note. Continue diuretics. Supportive care for now. PRISCILLA CHANG APRN Jan 04, 2019 13:00 TRELL CHAVEZ MD Jan 04, 2019 18:58
[2019-01-04 15:00] VITALS: BP 120/63
[2019-01-04] MEDS ORDERED: POTASSIUM CHLORIDE 20 MEQ TABLET.ER. PO ONE (15:00)
--- NOTE | 2019-01-04 15:44 | PDOC ---
SUBJECTIVE ROS Stable OBJECTIVE Vital Signs Vital Signs Date Time Temp Pulse Resp B/P (MAP) Pulse Ox O2 Delivery O2 Flow Rate FiO2 01/04/19 11:00 97.8 67 18 129/68 (88) 98 Room Air 97.8 I & 0 Intake and Output 01/04/19 07:00 Intake Total 1840 ml Output Total 3450 ml Balance -1610 ml Intake Oral 1090 ml IV Total 750 ml Output Urine Total 3450 ml PHYSICAL EXAM Physical Exam GEN- Sitting in chair , NAD HEENT: OM moist NECK: Supple. CARDIOVASCULAR: S1, S2. LUNGS: CTA, Non labored ABDOMEN: Soft, obese Scrotum is large , Mcgraw + EXTREMITIES: Changes of CVI+ NEUROLOGIC: Grossly normal; SKIN No rash, Erythema LE DIAGNOSIS/ASSESSMENT Assessment & Plan ? TERENCE - per primary care baseline renal function 2.1 Pt denies any hx of CKD E-Lytes Stable , good uop Monitor renal unction, supportive care , renal US- unremarkable Scrotal swelling with cellulitis Benign prostatic hypertrophy with symptoms of overflow, distention. Mcgraw catheter was placed. Urology managing Congestive heart failure, new onset. On IV Lasix and Lisinopril - CXr no e/o Congestion Cardiology managing Hypertension.- BP low Hold Lisinopril Adjust other AntiHTNsive as well if hypotension Abdominal aortic aneurysm measuring 4.0 x 3.8 cm. 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 ? UTI - per Primary COMMENT/RELEVANT DATA Meds Current Medications Medications (Trade) Dose Ordered Sig/Harsha Start Time Stop Time Status Last Admin Dose Admin Amlodipine Besylate (Norvasc) 2.5 mg DAILY 01/03/19 11:00 01/03/19 10:41 2.5 MG Atorvastatin Calcium (Lipitor) 20 mg HS 01/03/19 21:00 01/03/19 21:33 20 MG Furosemide (Lasix) 40 mg DAILY 01/05/19 09:00 Heparin Sodium (Porcine) (Heparin Sodium) 5,000 unit Q12HR 01/03/19 09:00 01/03/19 10:17 DC Lisinopril (Prinivil) 20 mg HS 01/03/19 21:00 01/04/19 14:45 DC Magnesium Sulfate 50 ml @ 25 mls/hr 1X ONCE 01/03/19 11:00 01/03/19 12:59 DC 01/03/19 11:22 25 MLS/HR Metoprolol Succinate (Toprol Xl) 100 mg DAILY 01/03/19 11:00 01/03/19 10:41 100 MG Morphine Sulfate (Morphine Sulfate) 2 mg PRN Q2HR PRN 01/02/19 20:15 01/03/19 20:14 DC Piperacillin Sod/ Tazobactam Sod 3.375 gm/Sodium Chloride 50 ml @ 100 mls/hr Q6HRS 01/03/19 00:00 01/04/19 11:02 100 MLS/HR Potassium Chloride (Klor-Con) 20 meq 1X ONCE 01/04/19 15:00 01/04/19 15:01 DC 01/04/19 15:00 20 MEQ Senna/Docusate Sodium (Senna Plus) 2 tab DAILY 01/04/19 11:00 01/04/19 11:02 2 TAB Sodium Chloride 1,000 ml @ 75 mls/hr [id number] 01/02/19 20:04 01/03/19 10:17 DC 01/03/19 01:13 75 MLS/HR Tamsulosin HCl (Flomax) 0.4 mg QHS 01/04/19 21:00 Vancomycin HCl (Vanco Per Pharmacy) 1 each PRN DAILY PRN 01/02/19 22:45 01/03/19 00:28 1 EACH Vancomycin HCl (Vancomycin Trough Level) 1 each 1X ONCE 01/04/19 21:30 01/04/19 21:31 Vancomycin HCl 1 gm/Sodium Chloride 250 ml @ 250 mls/hr 1X ONCE 01/02/19 23:00 01/02/19 23:59 DC 01/02/19 23:42 250 MLS/HR Vancomycin HCl 2 gm/Sodium Chloride 500 ml @ 250 mls/hr Q24H 01/03/19 22:00 01/03/19 21:33 250 MLS/HR Lab Laboratory Tests Test 01/04/19 09:28 White Blood Count 10.1 x10^3/uL (4.0-11.0) Red Blood Count 4.20 x10^6/uL (4.30-5.70) Hemoglobin 12.2 g/dL (13.0-17.5) Hematocrit 36.8 % (39.0-53.0) Mean Corpuscular Volume 88 fL (79-100) Mean Corpuscular Hemoglobin 29 pg (25-35) Mean Corpuscular Hemoglobin Concent 33 g/dL (31-37) Red Cell Distribution Width 17.6 % (11.5-14.5) Platelet Count 335 x10^3/uL (140-400) Neutrophils (%) (Auto) 75 % (31-73) Lymphocytes (%) (Auto) 11 % (24-48) Monocytes (%) (Auto) 7 % (0-9) Eosinophils (%) (Auto) 6 % (0-3) Basophils (%) (Auto) 1 % (0-3) Neutrophils # (Auto) 7.6 x10^3/uL (1.8-7.7) Lymphocytes # (Auto) 1.1 x10^3/uL (1.0-4.8) Monocytes # (Auto) 0.7 x10^3/uL (0.0-1.1) Eosinophils # (Auto) 0.6 x10^3/uL (0.0-0.7) Basophils # (Auto) 0.1 x10^3/uL (0.0-0.2) Sodium Level 142 mmol/L (136-145) Potassium Level 3.4 mmol/L (3.5-5.1) Chloride Level 104 mmol/L (98-107) Carbon Dioxide Level 26 mmol/L (21-32) Anion Gap 12 (6-14) Blood Urea Nitrogen 21 mg/dL (8-26) Creatinine 2.4 mg/dL (0.7-1.3) Estimated GFR (Cockcroft-Gault) 26.5 Glucose Level 125 mg/dL (70-99) Calcium Level 9.1 mg/dL (8.5-10.1) Magnesium Level 1.9 mg/dL (1.8-2.4) Results All relevant outside records, renal labs, imaging studies, telemetry/EKG's were reviewed. BEV REYES MD Jan 04, 2019 15:44
[2019-01-04] MEDS: VANCOMYCIN PER PHARMACY MC PRN ×2 (15:55→22:52)
[2019-01-04 19:00] VITALS: BP 114/66
[2019-01-04] MEDS ORDERED: ACETAMINOPHEN 325 MG TABLET. PO PRN (20:15)
[2019-01-04] MEDS: ATORVASTATIN CALCIUM 20 MG TABLET PO SCH (20:53)
[2019-01-04] MEDS: TAMSULOSIN 0.4 MG CAP.ER.24H. PO SCH (20:53)
[2019-01-04] MEDS: LACTOBACILLUS RHAMNOSUS GG 1 CAPSULE. PO SCH (20:53)
--- NOTE | 2019-01-04 20:55 | NUR ---
Pt c/o mild discomfort this evening requesting pain medication stating, "It doesn't always hurt it comes and goes". MD notified and orders for Tylenol rcvd. This RN brought patient Tylenol and pt became upset stating, "Tylenol doesn't work, I told you only aspirin helps". This RN explained to patient that aspirin is placed on hold d/t ongoing blood in urine, patient verbalized understanding. Pt declined Tylenol administration at this time, stating "The pain is not really there like it was before, I don't need it". Pt in chair, call light within reach and will continue to monitor.
[2019-01-04 22:07] LABS: VANC TR 15.9 mcg/mL (10.0-20.0)
[2019-01-04] MEDS: VANCOMYCIN 2 GM in IV NORMAL SALINE 500ML BAG 500 ML IV SCH (22:15)
--- NOTE | 2019-01-04 22:53 | NUR ---
Pharmacy Vancomycin Dosing Note S: Consulted to monitor and dose vancomycin started 01/02/19. O: ARUN MALONE is a 73 year old M with Cellulitis, . Other Antibiotics: ZOSYN 3.375 GM Q6H LABS: Last BUN: 21 Last Creatinine: 2.4 Creatinine Clearance: 39.9 mL/min Last WBC: 10.1 Last Procalcitonin: Tmax (past 24 hours): 99.8 Microbiology: NGTD I/O: 7150/3450 Drug Levels: Last Trough level: 15.9 on 01/04/19 at 2130 Last dose given 01/03/19 at 2133 Vancomycin Dosing: Dosing Weight: Actual Target Trough: 10-20 A: Based on: Trough, Updated Actual Wt and CrCl P: 1. 01/04/192199 Continue Vancomycin 2000 mg IV q24h 2. Follow up Trough level in 5 to 7 days as needed 3. Pharmacy will continue to monitor, follow and adjust therapy as needed. NOEMÍ VAIL RPH, 01/04/192252 Signed: 01/04/19 at 2253 by NOEMÍ VAIL RPH PHA
[2019-01-04 23:00] VITALS: BP 122/76
[2019-01-05] MEDS: PIPERACILLIN/TAZOBACTAM 3.375 GM in IV NORMAL SALINE 50ML 50 ML IV SCH ×5 (00:07→23:59)
--- NOTE | 2019-01-05 00:15 | NUR ---
Pt's significant other called for update on patient's status but unable to provide correct 4 digit patient pass code. Pt awake in chair at this time and informed of s/o telephone call, will continue to monitor.
[2019-01-05 03:00] VITALS: BP 109/56
[2019-01-05 06:56] LABS: CALCIUM 8.8 mg/dL (8.5-10.1); CREATININE 2.2 mg/dL (0.7-1.3); GFR 29.3; POTASSIUM 3.7 mmol/L (3.5-5.1)
[2019-01-05 07:00] VITALS: BP 116/62
[2019-01-05 07:00] LABS: BASO # 0.1 x10^3/uL (0.0-0.2); BASO % 1 % (0-3); EOS # 0.6 x10^3/uL (0.0-0.7); EOS % 6 % (0-3); HEMATOCRIT 36.5 % (39.0-53.0); HEMOGLOBIN 11.8 g/dL (13.0-17.5); LYMPH # 1.1 x10^3/uL (1.0-4.8); LYMPH % 10 % (24-48); MEAN CORPUSCULAR HEMOGLOBIN 29 pg (25-35); MEAN CORPUSCULAR HGB CONC 32 g/dL (31-37); MEAN CORPUSCULAR VOLUME 88 fL (79-100); MONO # 0.9 x10^3/uL (0.0-1.1); MONO % 8 % (0-9); NEUT # 8.1 x10^3/uL (1.8-7.7); NEUT % 75 % (31-73); PLATELET COUNT 309 x10^3/uL (140-400); RED BLOOD COUNT 4.15 x10^6/uL (4.30-5.70); RED CELL DISTRIBUTION WIDTH 16.8 % (11.5-14.5); WHITE BLOOD COUNT 10.8 x10^3/uL (4.0-11.0)
[2019-01-05] MEDS: FUROSEMIDE 40 MG TABLET. PO SCH (08:04)
[2019-01-05] MEDS: LACTOBACILLUS RHAMNOSUS GG 1 CAPSULE. PO SCH ×2 (08:04→21:29)
[2019-01-05] MEDS: POTASSIUM CHLORIDE 20 MEQ TABLET.ER. PO SCH (08:05)
[2019-01-05] MEDS: amLODIPine BESYLATE 5 MG TABLET PO SCH (08:06)
[2019-01-05] MEDS: SENNOSIDES/DOCUSATE 8.6/50MG TABLET. PO SCH (08:06)
[2019-01-05] MEDS: METOPROLOL SUCC 24HR ER 100 MG TAB.ER.24H. PO SCH (08:07)
--- NOTE | 2019-01-05 09:30 | PDOC ---
IM PROGRESS NOTES- Subjective Subjective No pain or dyspnea. Objective Vitals/I&O Vital Signs Date Time Temp Pulse Resp B/P (MAP) Pulse Ox O2 Delivery O2 Flow Rate FiO2 01/05/19 08:07 101 116/62 01/05/19 07:29 Room Air 01/05/19 07:00 98.0 18 93 98.0 I & O 01/04/19 01/04/19 01/05/19 14:59 22:59 06:59 Intake Total 400 ml 400 ml 0 ml Output Total 400 ml 300 ml 700 ml Balance 0 ml 100 ml -700 ml Physical Exam Physical Exam General appearance - alert,well appearing, and in no distress and oriented to person, place, and time Mental Status - alert, oriented to person, place, and time, affect appropriate to mood Head - normal Chest - clear to auscultation, no wheezes, rales or rhonchi, symmetric air entry Heart - S1 and S2 normal Abdomen - soft, nontender, nondistended, no masses or organomegaly scrotal edema with redness Neurological - alert and oriented Musculoskeletal - no muscular tenderness noted Extremities - no pedal edema Skin - warm and dry Labs Laboratory Tests Test 01/04/19 21:40 01/05/19 06:10 Vancomycin Level Trough 15.9 mcg/mL (10.0-20.0) Vancomycin Last Dose Date Unk Vancomycin Last Dose Time Unk White Blood Count 10.8 x10^3/uL (4.0-11.0) Red Blood Count 4.15 x10^6/uL (4.30-5.70) L Hemoglobin 11.8 g/dL (13.0-17.5) L Hematocrit 36.5 % (39.0-53.0) L Mean Corpuscular Volume 88 fL (79-100) Mean Corpuscular Hemoglobin 29 pg (25-35) Mean Corpuscular Hemoglobin Concent 32 g/dL (31-37) Red Cell Distribution Width 16.8 % (11.5-14.5) H Platelet Count 309 x10^3/uL (140-400) Neutrophils (%) (Auto) 75 % (31-73) H Lymphocytes (%) (Auto) 10 % (24-48) L Monocytes (%) (Auto) 8 % (0-9) Eosinophils (%) (Auto) 6 % (0-3) H Basophils (%) (Auto) 1 % (0-3) Neutrophils # (Auto) 8.1 x10^3/uL (1.8-7.7) H Lymphocytes # (Auto) 1.1 x10^3/uL (1.0-4.8) Monocytes # (Auto) 0.9 x10^3/uL (0.0-1.1) Eosinophils # (Auto) 0.6 x10^3/uL (0.0-0.7) Basophils # (Auto) 0.1 x10^3/uL (0.0-0.2) Sodium Level 141 mmol/L (136-145) Potassium Level 3.7 mmol/L (3.5-5.1) Chloride Level 104 mmol/L (98-107) Carbon Dioxide Level 27 mmol/L (21-32) Anion Gap 10 (6-14) Blood Urea Nitrogen 20 mg/dL (8-26) Creatinine 2.2 mg/dL (0.7-1.3) H Estimated GFR (Cockcroft-Gault) 29.3 Glucose Level 102 mg/dL (70-99) H Calcium Level 8.8 mg/dL (8.5-10.1) Laboratory Tests 01/05/19 06:10 Laboratory Tests 01/05/19 06:10 Meds Current Medications Medications (Trade) Dose Ordered Sig/Harsha Route PRN Reason Start Time Stop Time Status Last Admin Dose Admin Vancomycin HCl (Vancomycin Trough Level) 1 each 1X ONCE 01/04/19 21:30 01/04/19 21:31 NE 01/04/19 22:15 Potassium Chloride (Klor-Con) 20 meq [id number] PO 01/04/19 11:00 01/05/19 08:06 Tamsulosin HCl (Flomax) 0.4 mg QHS PO 01/04/19 21:00 01/04/19 20:53 Senna/Docusate Sodium (Senna Plus) 2 tab DAILY PO 01/04/19 11:00 01/04/19 11:02 Furosemide (Lasix) 40 mg DAILY PO 01/05/19 09:00 01/05/19 08:06 Potassium Chloride (Klor-Con) 20 meq 1X ONCE PO 01/04/19 15:00 01/04/19 15:01 DC 01/04/19 15:00 Lactobacillus Rhamnosus (Culturelle) 1 cap BID PO 01/04/19 21:00 01/05/19 08:06 Assessment Assessment 1. Scrotal swelling with cellulitis. 2. Benign prostatic hypertrophy with symptoms of overflow, distention. George catheter was placed. The patient has some bloody tinged urine from trauma. 3. Congestive heart failure, new onset. 4. Hypertension. 5. Hyperlipidemia. 6. Chronic kidney disease, creatinine 2.1. 7. AAA 4 cm seize PLAN: At this time, was to admit to hospital. Scrotal cellulitis - Had a George catheter placed. Urine cultures done, started on vancomycin and Zosyn and Urology was consulted. Pelvic CT 1. Diffuse scrotal soft tissue swelling with subcutaneous edema most suggestive of cellulitis. No CT evidence for Johanna gangrene. 2. Abdominal aortic aneurysm measuring 4.0 x 3.8 cm. 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 3. Prostatomegaly. 4. Small left inguinal hernia containing fat. Also, have a renal consult and a Cardiology consult for heart failure. Echocardiogram and follow up on Lovenox and aspirin for the time being secondary to hematuria . Renal insufficiency- monitor. Creatinine 2.1. Hematuria- ? george cath trauma. Acute on chronic diastolic congestive heart failure Scrotal cellulitis- continue IV Zosyn and vancomycin.Improving.D/w patient,daughter.Avoid NSAIDS. Add Tylenol,Tramadol. Plan Plan For more details regarding further plans, please refer to the orders. KALIA GARCIA MD Jan 05, 2019 09:30
--- NOTE | 2019-01-05 09:46 | PDOC ---
SUBJECTIVE Subjective PT feeling a lot better as far as pain and pt also feels swelling to scrotum is improved. Catheter not bothering him; urine coming from catheter is yellow/pinkish color with scant wisps. OBJECTIVE Objective Physical Exam: General appearance: Alert and Oriented Head: Normocephalic, without obvious abnormality Eyes: conjunctivae/corneas clear. PERRL, EOM's intact. Fundi benign Lungs: Regular respirations, non labored breathing Abdomen: soft, non-tender, obese No masses, no organomegaly Pelvic: + Scrotal swelling, non tender on exam. Overall improved since last exam. + Mcgraw catheter in place draining pinkish-yellow urine with scant wisps. Device in good working order. Vital Signs Vital Signs Date Time Temp Pulse Resp B/P (MAP) Pulse Ox O2 Delivery O2 Flow Rate FiO2 01/05/19 08:07 101 116/62 01/05/19 08:07 101 116/62 01/05/19 07:29 Room Air 01/05/19 07:00 98.0 101 18 116/62 (80) 93 Room Air 98.0 01/05/19 03:00 99.3 73 109/56 (73) 96 Room Air 99.3 01/04/19 23:00 97.9 76 18 122/76 (91) 96 Room Air 97.9 01/04/19 19:45 Room Air 01/04/19 19:00 97.7 82 18 114/66 (82) 96 Room Air 97.7 01/04/19 15:00 97.8 79 19 120/63 (82) 96 Room Air 97.8 01/04/19 11:00 97.8 67 18 129/68 (88) 98 Room Air 97.8 I & O Intake and Output 01/05/19 06:59 Intake Total 800 ml Output Total 1400 ml Balance -600 ml Intake Oral 800 ml Output Urine Total 1400 ml PHYSICAL EXAM Physical Exam Physical Exam: General appearance: Alert and Oriented Head: Normocephalic, without obvious abnormality Eyes: conjunctivae/corneas clear. PERRL, EOM's intact. Fundi benign Lungs: Regular respirations, non labored breathing Abdomen: soft, non-tender, obese No masses, no organomegaly Pelvic: + Scrotal swelling, non tender on exam. Overall improved since last exam. + Mcgraw catheter in place draining pinkish-yellow urine with scant wisps. Device in good working order. ASSESSMENT/PLAN Assessment/Plan Encouraged support of scrotum with rolled towels or hammock method. Voiding trial when patient is more mobile and medical team is contemplating discharge. Continue abx per medical team. Nursing may apply ice to scrotum PRN discomfort. Medical team just started him on Flomax, continue. Will check back with patient tomorrow. COMMENT Lab Laboratory Tests Test 01/04/19 21:40 01/05/19 06:10 Vancomycin Level Trough 15.9 mcg/mL (10.0-20.0) Vancomycin Last Dose Date Unk Vancomycin Last Dose Time Unk White Blood Count 10.8 x10^3/uL (4.0-11.0) Red Blood Count 4.15 x10^6/uL (4.30-5.70) Hemoglobin 11.8 g/dL (13.0-17.5) Hematocrit 36.5 % (39.0-53.0) Mean Corpuscular Volume 88 fL (79-100) Mean Corpuscular Hemoglobin 29 pg (25-35) Mean Corpuscular Hemoglobin Concent 32 g/dL (31-37) Red Cell Distribution Width 16.8 % (11.5-14.5) Platelet Count 309 x10^3/uL (140-400) Neutrophils (%) (Auto) 75 % (31-73) Lymphocytes (%) (Auto) 10 % (24-48) Monocytes (%) (Auto) 8 % (0-9) Eosinophils (%) (Auto) 6 % (0-3) Basophils (%) (Auto) 1 % (0-3) Neutrophils # (Auto) 8.1 x10^3/uL (1.8-7.7) Lymphocytes # (Auto) 1.1 x10^3/uL (1.0-4.8) Monocytes # (Auto) 0.9 x10^3/uL (0.0-1.1) Eosinophils # (Auto) 0.6 x10^3/uL (0.0-0.7) Basophils # (Auto) 0.1 x10^3/uL (0.0-0.2) Sodium Level 141 mmol/L (136-145) Potassium Level 3.7 mmol/L (3.5-5.1) Chloride Level 104 mmol/L (98-107) Carbon Dioxide Level 27 mmol/L (21-32) Anion Gap 10 (6-14) Blood Urea Nitrogen 20 mg/dL (8-26) Creatinine 2.2 mg/dL (0.7-1.3) Estimated GFR (Cockcroft-Gault) 29.3 Glucose Level 102 mg/dL (70-99) Calcium Level 8.8 mg/dL (8.5-10.1) CHRISTOPHER BATES APRN Jan 05, 2019 09:46
[2019-01-05 11:00] VITALS: BP 129/81
--- NOTE | 2019-01-05 12:06 | PDOC ---
SUBJECTIVE ROS Stable OBJECTIVE Vital Signs Vital Signs Date Time Temp Pulse Resp B/P (MAP) Pulse Ox O2 Delivery O2 Flow Rate FiO2 01/05/19 08:07 101 116/62 01/05/19 07:29 Room Air 01/05/19 07:00 98.0 18 93 98.0 I & 0 Intake and Output 01/05/19 07:00 Intake Total 800 ml Output Total 1400 ml Balance -600 ml Intake Oral 800 ml Output Urine Total 1400 ml PHYSICAL EXAM Physical Exam GEN- Sitting in chair , NAD HEENT: OM moist NECK: Supple. CARDIOVASCULAR: S1, S2. LUNGS: CTA, Non labored ABDOMEN: Soft, obese Scrotum is large , Mcgraw + EXTREMITIES: Changes of CVI+ NEUROLOGIC: Grossly normal; SKIN No rash, Erythema LE DIAGNOSIS/ASSESSMENT Assessment & Plan TERENCE - suspect 2/2 Urinary retention per primary care baseline renal function 2.1 Pt denies any hx of CKD E-Lytes Stable , good uop Monitor renal function, supportive care , renal US- unremarkable Scrotal swelling - improved Benign prostatic hypertrophy with symptoms of overflow, distention. Mcgraw catheter was placed. Urology managing Congestive heart failure, new onset. On IV Lasix and Lisinopril - CXr no e/o Congestion Cardiology managing Hypertension.- BP low Lisinopril held 01/04, On IV lasix as well Adjust other AntiHTNsive as well if hypotension Abdominal aortic aneurysm measuring 4.0 x 3.8 cm. 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 ? UTI - per Primary Discussed A/P with Pt COMMENT/RELEVANT DATA Meds Current Medications Medications (Trade) Dose Ordered Sig/Harsha Start Time Stop Time Status Last Admin Dose Admin Acetaminophen (Tylenol) 650 mg PRN Q6HRS PRN 01/04/19 20:15 Amlodipine Besylate (Norvasc) 2.5 mg DAILY 01/03/19 11:00 01/03/19 10:41 2.5 MG Atorvastatin Calcium (Lipitor) 20 mg HS 01/03/19 21:00 01/04/19 20:53 20 MG Furosemide (Lasix) 40 mg DAILY 01/05/19 09:00 01/05/19 08:06 40 MG Heparin Sodium (Porcine) (Heparin Sodium) 5,000 unit Q12HR 01/03/19 09:00 01/03/19 10:17 DC Lactobacillus Rhamnosus (Culturelle) 1 cap BID 01/04/19 21:00 01/05/19 08:06 1 CAP Lisinopril (Prinivil) 20 mg HS 01/03/19 21:00 01/04/19 14:45 DC Magnesium Sulfate 50 ml @ 25 mls/hr 1X ONCE 01/03/19 11:00 01/03/19 12:59 DC 01/03/19 11:22 25 MLS/HR Metoprolol Succinate (Toprol Xl) 100 mg DAILY 01/03/19 11:00 01/03/19 10:41 100 MG Morphine Sulfate (Morphine Sulfate) 2 mg PRN Q2HR PRN 01/02/19 20:15 01/03/19 20:14 DC Piperacillin Sod/ Tazobactam Sod 3.375 gm/Sodium Chloride 50 ml @ 100 mls/hr Q6HRS 01/03/19 00:00 01/05/19 10:41 100 MLS/HR Potassium Chloride (Klor-Con) 20 meq 1X ONCE 01/04/19 15:00 01/04/19 15:01 DC 01/04/19 15:00 20 MEQ Senna/Docusate Sodium (Senna Plus) 2 tab DAILY 01/04/19 11:00 01/04/19 11:02 2 TAB Sodium Chloride 1,000 ml @ 75 mls/hr [id number] 01/02/19 20:04 01/03/19 10:17 DC 01/03/19 01:13 75 MLS/HR Tamsulosin HCl (Flomax) 0.4 mg QHS 01/04/19 21:00 01/04/19 20:53 0.4 MG Tramadol HCl (Ultram) 50 mg PRN Q6HRS PRN 01/05/19 10:30 Vancomycin HCl (Vanco Per Pharmacy) 1 each PRN DAILY PRN 01/02/19 22:45 01/04/19 22:52 1 EACH Vancomycin HCl (Vancomycin Trough Level) 1 each 1X ONCE 01/04/19 21:30 01/04/19 21:31 DC 01/04/19 22:15 1 EACH Vancomycin HCl 1 gm/Sodium Chloride 250 ml @ 250 mls/hr 1X ONCE 01/02/19 23:00 01/02/19 23:59 DC 01/02/19 23:42 250 MLS/HR Vancomycin HCl 2 gm/Sodium Chloride 500 ml @ 250 mls/hr Q24H 01/03/19 22:00 01/04/19 22:15 250 MLS/HR Lab Laboratory Tests Test 01/04/19 21:40 01/05/19 06:10 Vancomycin Level Trough 15.9 mcg/mL (10.0-20.0) Vancomycin Last Dose Date Unk Vancomycin Last Dose Time Unk White Blood Count 10.8 x10^3/uL (4.0-11.0) Red Blood Count 4.15 x10^6/uL (4.30-5.70) Hemoglobin 11.8 g/dL (13.0-17.5) Hematocrit 36.5 % (39.0-53.0) Mean Corpuscular Volume 88 fL (79-100) Mean Corpuscular Hemoglobin 29 pg (25-35) Mean Corpuscular Hemoglobin Concent 32 g/dL (31-37) Red Cell Distribution Width 16.8 % (11.5-14.5) Platelet Count 309 x10^3/uL (140-400) Neutrophils (%) (Auto) 75 % (31-73) Lymphocytes (%) (Auto) 10 % (24-48) Monocytes (%) (Auto) 8 % (0-9) Eosinophils (%) (Auto) 6 % (0-3) Basophils (%) (Auto) 1 % (0-3) Neutrophils # (Auto) 8.1 x10^3/uL (1.8-7.7) Lymphocytes # (Auto) 1.1 x10^3/uL (1.0-4.8) Monocytes # (Auto) 0.9 x10^3/uL (0.0-1.1) Eosinophils # (Auto) 0.6 x10^3/uL (0.0-0.7) Basophils # (Auto) 0.1 x10^3/uL (0.0-0.2) Sodium Level 141 mmol/L (136-145) Potassium Level 3.7 mmol/L (3.5-5.1) Chloride Level 104 mmol/L (98-107) Carbon Dioxide Level 27 mmol/L (21-32) Anion Gap 10 (6-14) Blood Urea Nitrogen 20 mg/dL (8-26) Creatinine 2.2 mg/dL (0.7-1.3) Estimated GFR (Cockcroft-Gault) 29.3 Glucose Level 102 mg/dL (70-99) Calcium Level 8.8 mg/dL (8.5-10.1) Results All relevant outside records, renal labs, imaging studies, telemetry/EKG's were reviewed. BEV REYES MD Jan 05, 2019 12:06
[2019-01-05] MEDS: VANCOMYCIN PER PHARMACY MC PRN (14:13)
[2019-01-05 15:00] VITALS: BP 100/66
[2019-01-05] MEDS: traMADol 50 MG TABLET PO PRN (17:45)
[2019-01-05 19:00] VITALS: BP 158/78
--- NOTE | 2019-01-05 19:10 | NUR ---
notified of Mcgraw catheter leaking around insertion site w/ no kinks noted and Mcgraw remains secured to leg w/ urine draining in bag. Medication orders rcvd. from Dr. Ramos at this time. Catheter care performed and barrier cream applied to scrotum. Pt in chair, will continue to monitor.
--- NOTE | 2019-01-05 20:10 | NUR ---
Spoke with pt's significant other, Allison, via phone as she was, "worried about Heron". This RN updated s/o re: pt's plan of care and current status at this time. Pt in chair and call light within reach, will continue to monitor.
[2019-01-05] MEDS ORDERED: OXYBUTYNIN CHLORIDE 5 MG TABLET PO PRN (20:15)
--- NOTE | 2019-01-05 21:15 | NUR ---
Spoke with pt's daughter Day phone via telephone regarding patient's plan of care. Pt's progress discussed and concerns addressed. This nurse informed pt that daughter will be calling him shortly. Pt in chair and call light within reach, will continue to monitor.
[2019-01-05] MEDS: TAMSULOSIN 0.4 MG CAP.ER.24H. PO SCH (21:29)
[2019-01-05] MEDS: ATORVASTATIN CALCIUM 20 MG TABLET PO SCH (21:29)
[2019-01-05] MEDS: VANCOMYCIN 2 GM in IV NORMAL SALINE 500ML BAG 500 ML IV SCH (22:36)
[2019-01-05 23:00] VITALS: BP 164/94
[2019-01-06] MEDS: traMADol 50 MG TABLET PO PRN (00:26)
--- NOTE | 2019-01-06 00:50 | NUR ---
Pt's [place] chair alarm sounding and pt. found out of chair, standing on Mcgraw line with visible urine on floor. Pt states, "I had to get up for my circulation". Pt upset about chair alarm, this nurse explained it is for his safety and educated pt on the risk for falls and importance of using his call light when wanting to stand up. Pt's Mcgraw noted to be pulled out/kinked at this time. Pt denies pulling at Mcgraw stating, "I haven't touched it". Mcgraw stat lock reapplied, small amount of new urine noted in bag and pt back in chair, will continue to monitor.
--- NOTE | 2019-01-06 01:45 | NUR ---
Mcgraw removed d/t increase in urine leaking from insertion site and no new urine drainage noted in bag after reassessment. Dr. Richard teixeira and no orders rcvd., ok per MD to keep Mcgraw out for voiding trial. Pt tolerated removal well, will continue to monitor.
[2019-01-06 03:00] VITALS: BP 135/85
[2019-01-06] MEDS: PIPERACILLIN/TAZOBACTAM 3.375 GM in IV NORMAL SALINE 50ML 50 ML IV SCH ×4 (06:22→23:16)
[2019-01-06 07:00] VITALS: BP 143/87
[2019-01-06] MEDS: LACTOBACILLUS RHAMNOSUS GG 1 CAPSULE. PO SCH ×2 (08:35→20:56)
[2019-01-06] MEDS: POTASSIUM CHLORIDE 20 MEQ TABLET.ER. PO SCH (08:35)
[2019-01-06] MEDS: SENNOSIDES/DOCUSATE 8.6/50MG TABLET. PO SCH (08:36)
[2019-01-06] MEDS: METOPROLOL SUCC 24HR ER 50 MG TAB.ER.24H. PO SCH (08:36)
[2019-01-06] MEDS: amLODIPine BESYLATE 5 MG TABLET PO SCH (08:37)
[2019-01-06] MEDS: FUROSEMIDE 40 MG TABLET. PO SCH (08:37)
--- NOTE | 2019-01-06 09:25 | PDOC ---
IM PROGRESS NOTES- Subjective Subjective No pain or dyspnea. Objective Vitals/I&O Vital Signs Date Time Temp Pulse Resp B/P (MAP) Pulse Ox O2 Delivery O2 Flow Rate FiO2 01/06/19 08:38 84 143/87 01/06/19 07:30 Room Air 01/06/19 07:00 98.2 16 96 98.2 I & O 01/05/19 01/05/19 01/06/19 14:59 22:59 06:59 Intake Total 1200 ml 550 ml Output Total 1350 ml 475 ml 200 ml Balance -1350 ml 725 ml 350 ml Physical Exam Physical Exam General appearance - alert,well appearing, and in no distress and oriented to person, place, and time Mental Status - alert, oriented to person, place, and time, affect appropriate to mood Head - normal Chest - clear to auscultation, no wheezes, rales or rhonchi, symmetric air entry Heart - S1 and S2 normal Abdomen - soft, nontender, nondistended, no masses or organomegaly scrotal edema with redness Neurological - alert and oriented Musculoskeletal - no muscular tenderness noted Extremities - no pedal edema Skin - warm and dry Meds Current Medications Medications (Trade) Dose Ordered Sig/Harsha Route PRN Reason Start Time Stop Time Status Last Admin Dose Admin Tramadol HCl (Ultram) 50 mg PRN Q6HRS PRN PO MODERATE PAIN 4-6 01/05/19 10:30 01/06/19 00:26 Metoprolol Succinate (Toprol Xl) 50 mg DAILY PO 01/06/19 09:00 01/06/19 08:38 Oxybutynin Chloride (Ditropan) 5 mg PRN Q8HRS PRN PO BLADDER SPASM 01/05/19 20:15 01/05/19 21:30 Assessment Assessment 1. Scrotal swelling with cellulitis. 2. Benign prostatic hypertrophy with symptoms of overflow, distention. George catheter was placed. The patient has some bloody tinged urine from trauma. 3. Congestive heart failure, new onset. 4. Hypertension. 5. Hyperlipidemia. 6. Chronic kidney disease, creatinine 2.1. 7. AAA 4 cm seize PLAN: At this time, was to admit to hospital. Scrotal cellulitis - Had a George catheter placed. Urine cultures done, started on vancomycin and Zosyn and Urology was consulted. Pelvic CT 1. Diffuse scrotal soft tissue swelling with subcutaneous edema most suggestive of cellulitis. No CT evidence for Johanna gangrene. 2. Abdominal aortic aneurysm measuring 4.0 x 3.8 cm. 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 3. Prostatomegaly. 4. Small left inguinal hernia containing fat. Also, have a renal consult and a Cardiology consult for heart failure. Echocardiogram and follow up on Lovenox and aspirin for the time being secondary to hematuria . Renal insufficiency- monitor. Creatinine 2.2. Hematuria- ? george cath trauma.Better. Urine c/s negative. Urinary retention- on Flomax.Voiding better without George. Acute on chronic diastolic congestive heart failure Scrotal cellulitis- continue IV Zosyn and vancomycin.Improving.D/w patient,daughter.Avoid NSAIDS. Add Tylenol,Tramadol. Plan Plan For more details regarding further plans, please refer to the orders. KALIA GARCIA MD Jan 06, 2019 09:25
--- NOTE | 2019-01-06 10:25 | PDOC ---
SUBJECTIVE Subjective Pt feels like his condition is improved greatly. No pain. His catheter is out and he is voiding very well. OBJECTIVE Objective Physical Exam: General appearance: Alert and Oriented Head: Normocephalic, without obvious abnormality Eyes: conjunctivae/corneas clear. PERRL, EOM's intact. Fundi benign Lungs: Regular respirations, non labored breathing Abdomen: soft, non-tender, obese No masses, no organomegaly Pelvic: + Scrotal swelling, non tender on exam. Overall improved since last exam Vital Signs Vital Signs Date Time Temp Pulse Resp B/P (MAP) Pulse Ox O2 Delivery O2 Flow Rate FiO2 01/06/19 08:38 84 143/87 01/06/19 08:38 84 143/87 01/06/19 07:30 Room Air 01/06/19 07:00 98.2 84 16 143/87 (105) 96 Room Air 98.2 01/06/19 03:00 98.1 91 18 135/85 (102) 96 Room Air 98.1 01/06/19 02:57 20 Room Air 01/06/19 00:26 18 Room Air 01/05/19 23:00 98.2 89 18 164/94 (117) 93 Room Air 98.2 01/05/19 21:30 16 Room Air 01/05/19 20:15 Room Air 01/05/19 19:00 98.3 98 18 158/78 (104) 92 Room Air 98.3 01/05/19 17:50 95 Room Air 01/05/19 15:00 98.0 100 18 100/66 (77) 95 Room Air 98.0 01/05/19 11:00 98.1 104 18 129/81 (97) 93 Room Air 98.1 I & O Intake and Output 01/06/19 06:59 Intake Total 1750 ml Output Total 2025 ml Balance -275 ml Intake Oral 1000 ml IV Total 750 ml Output Urine Total 2025 ml # Voids 1 # Bowel Movements 1 PHYSICAL EXAM Physical Exam Physical Exam: General appearance: Alert and Oriented Head: Normocephalic, without obvious abnormality Eyes: conjunctivae/corneas clear. PERRL, EOM's intact. Fundi benign Lungs: Regular respirations, non labored breathing Abdomen: soft, non-tender, obese No masses, no organomegaly Pelvic: + Scrotal swelling, non tender on exam. Overall improved since last exam ASSESSMENT/PLAN Assessment/Plan Scrotal cellulitis show significant improvement todya and patient is voiding well since george removed. Encouraged continued support of scrotum with rolled towels or hammock method prn Continue abx per medical team. Nursing may apply ice to scrotum PRN discomfort. Continue Flomax. A follow up appointment has been arranged for patien tto see Dr. Ramos on 01/12/19 at 11 am at [facility] location. Appointment card and new patient paperwork given to patient. Ok to discharge home, from a Urology perspective, whenever medical team is ready to do this. CHRISTOPHER BATES GLOBAL COMPENSATION DIRECTOR Jan 06, 2019 10:25
--- NOTE | 2019-01-06 10:48 | PDOC ---
SUBJECTIVE ROS Stable OBJECTIVE Vital Signs Vital Signs Date Time Temp Pulse Resp B/P (MAP) Pulse Ox O2 Delivery O2 Flow Rate FiO2 01/06/19 08:38 84 143/87 01/06/19 07:30 Room Air 01/06/19 07:00 98.2 16 96 98.2 I & 0 Intake and Output 01/06/19 06:59 Intake Total 1750 ml Output Total 2025 ml Balance -275 ml Intake Oral 1000 ml IV Total 750 ml Output Urine Total 2025 ml # Voids 1 # Bowel Movements 1 PHYSICAL EXAM Physical Exam GEN- Sitting in chair , NAD HEENT: OM moist NECK: Supple. CARDIOVASCULAR: S1, S2. LUNGS: CTA, Non labored ABDOMEN: Soft, obese Scrotum is large , George removed EXTREMITIES: Changes of CVI+ NEUROLOGIC: Grossly normal; SKIN No rash, Erythema LE DIAGNOSIS/ASSESSMENT Assessment & Plan TERENCE - suspect 2/2 Urinary retention per primary care baseline renal function 2.1, no labs today Pt denies any hx of CKD E-Lytes Stable , good uop , george removed Monitor renal function, supportive care , renal US- unremarkable Scrotal swelling - improved Benign prostatic hypertrophy with symptoms of overflow, distention. George catheter was placed. Urology managing Congestive heart failure, new onset. Switched to po Lasix - CXr no e/o Congestion Cardiology managing Hypertension.- Lisinopril held 01/04, Adjust AntiHTNsive if hypotension Abdominal aortic aneurysm measuring 4.0 x 3.8 cm. 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 ? UTI - per Primary COMMENT/RELEVANT DATA Meds Current Medications Medications (Trade) Dose Ordered Sig/Harsha Start Time Stop Time Status Last Admin Dose Admin Acetaminophen (Tylenol) 650 mg PRN Q6HRS PRN 01/04/19 20:15 Amlodipine Besylate (Norvasc) 2.5 mg DAILY 01/03/19 11:00 01/06/19 08:38 2.5 MG Atorvastatin Calcium (Lipitor) 20 mg HS 01/03/19 21:00 01/05/19 21:30 20 MG Furosemide (Lasix) 40 mg DAILY 01/05/19 09:00 01/06/19 08:38 40 MG Heparin Sodium (Porcine) (Heparin Sodium) 5,000 unit Q12HR 01/03/19 09:00 8/6/19 10:17 DC Lactobacillus Rhamnosus (Culturelle) 1 cap BID 01/04/19 21:00 01/06/19 08:38 1 CAP Lisinopril (Prinivil) 20 mg HS 01/03/19 21:00 01/04/19 14:45 DC Magnesium Sulfate 50 ml @ 25 mls/hr 1X ONCE 01/03/19 11:00 01/03/19 12:59 DC 01/03/19 11:22 25 MLS/HR Metoprolol Succinate (Toprol Xl) 50 mg DAILY 01/06/19 09:00 01/06/19 08:38 50 MG Morphine Sulfate (Morphine Sulfate) 2 mg PRN Q2HR PRN 01/02/19 20:15 01/03/19 20:14 DC Oxybutynin Chloride (Ditropan) 5 mg PRN Q8HRS PRN 01/05/19 20:15 01/05/19 21:30 5 MG Piperacillin Sod/ Tazobactam Sod 3.375 gm/Sodium Chloride 50 ml @ 100 mls/hr Q6HRS 01/03/19 00:00 01/06/19 06:22 100 MLS/HR Potassium Chloride (Klor-Con) 20 meq 1X ONCE 01/04/19 15:00 01/04/19 15:01 DC 01/04/19 15:00 20 MEQ Senna/Docusate Sodium (Senna Plus) 2 tab DAILY 01/04/19 11:00 01/06/19 08:38 2 TAB Sodium Chloride 1,000 ml @ 75 mls/hr [id number] 01/02/19 20:04 01/03/19 10:17 DC 01/03/19 01:13 75 MLS/HR Tamsulosin HCl (Flomax) 0.4 mg QHS 01/04/19 21:00 01/05/19 21:30 0.4 MG Tramadol HCl (Ultram) 50 mg PRN Q6HRS PRN 01/05/19 10:30 01/06/19 00:26 50 MG Vancomycin HCl (Vanco Per Pharmacy) 1 each PRN DAILY PRN 01/02/19 22:45 01/05/19 14:13 1 EACH Vancomycin HCl (Vancomycin Trough Level) 1 each 1X ONCE 01/04/19 21:30 01/04/19 21:31 DC 01/04/19 22:15 1 EACH Vancomycin HCl 1 gm/Sodium Chloride 250 ml @ 250 mls/hr 1X ONCE 01/02/19 23:00 01/02/19 23:59 DC 01/02/19 23:42 250 MLS/HR Vancomycin HCl 2 gm/Sodium Chloride 500 ml @ 250 mls/hr Q24H 01/03/19 22:00 01/05/19 22:36 250 MLS/HR Results All relevant outside records, renal labs, imaging studies, telemetry/EKG's were reviewed. BEV REYES MD Jan 06, 2019 10:48
[2019-01-06 11:00] VITALS: BP 124/82
--- NOTE | 2019-01-06 14:42 | PDOC2 ---
CONSULT Date of Consult Date of Consult DATE: 01/06/19 TIME: 14:20 Reason for Consult Reason for Consult: AAA and iliac aneurysm Referring Physician Referring Physician: Colton Identification/Chief Complaint Chief Complaint Edema Source Source: Patient History of Present Illness Reason for Visit: Pleasant 73 year old male with history of HTN, CAD, hyperlipidemia, tobacco use, hernia repair who is being treated for edema and scrotal cellulitis. 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 We have been asked to evaluate the patient regarding this. He reports a history of chronic back pain. Denies sudden worsening back or abdominal pain. He does have a history of smoking and chewing tobacco. He smoked for "20 out of the last 40 years, but quit 12 years ago". He also reports chewing tobacco for some years and "I always swallowed it, never spit it out". He denies medical history of diabetes. Denies family history of aneurysms. He denies symptoms of claudication. He does report bilateral leg symptoms described as pain at night, relieved when he gets up and with massaging, right > left. His Creatinine has been above 2.0 since this hospitalization. He does take a daily baby aspirin. He reports a family history of CAD and prostate cancer in his father, aunt had brain cancer and grandmother had breast cancer. Surgical history of hernia repair with mesh Past Medical History Cardiovascular: HTN Pulmonary: Other (MATIAS) CENTRAL NERVOUS SYSTEM: Periperal neuropathy Musculoskeletal: Osteoarthritis Past Surgical History Past Surgical History: Hernia Repair, Other (vasectomy) Family History Family History As in HPI Family History: Coronary Artery Disease (father) Social History Quit (remotely 30 pk yr) ALCOHOL: none Drugs: None Lives: Alone Current Problem List Problem List Problems Medical Problems: (1) Cellulitis, scrotum Status: Acute (2) Scrotal swelling Status: Acute Current Medications Current Medications Current Medications Furosemide (Lasix) 80 mg 1X ONCE IVP Last administered on 01/02/19at 17:40; Start 01/02/19 at 17:00; Stop 01/02/19 at 17:01; Status DC Piperacillin Sod/ Tazobactam Sod 3.375 gm/Sodium Chloride 50 ml @ 100 mls/hr 1X ONCE IV Last administered on 01/02/19at 18:35; Start 01/02/19 at 17:15; Stop 01/02/19 at 17:44; Status DC Vancomycin HCl 250 ml @ 250 mls/hr 1X ONCE IV Last administered on 01/02/19at 19:28; Start 01/02/19 at 17:15; Stop 01/02/19 at 18:14; Status DC Sodium Chloride 1,000 ml @ 1,000 mls/hr 1X ONCE IV Last administered on 01/02/19at 19:48; Start 01/02/19 at 19:30; Stop 01/02/19 at 20:29; Status DC Morphine Sulfate (Morphine Sulfate) 2 mg PRN Q2HR PRN IV PAIN; Start 01/02/19 at 20:15; Stop 01/03/19 at 20:14; Status DC Sodium Chloride 1,000 ml @ 75 mls/hr [id number] IV Last administered on 01/03/19at 01:13; Start 01/02/19 at 20:04; Stop 01/03/19 at 10:17; Status DC Piperacillin Sod/ Tazobactam Sod 3.375 gm/Sodium Chloride 50 ml @ 100 mls/hr Q6HRS IV ; Start 01/02/19 at 00:00; Status Cancel Vancomycin HCl (Vanco Per Pharmacy) 1 each PRN DAILY PRN MC SEE COMMENTS Last administered on 01/05/19at 14:13; Start 01/02/19 at 22:45 Heparin Sodium (Porcine) (Heparin Sodium) 5,000 unit Q12HR SQ ; Start 01/03/19 at 09:00; Stop 01/03/19 at 10:17; Status DC Vancomycin HCl 1 gm/Sodium Chloride 250 ml @ 250 mls/hr 1X ONCE IV Last administered on 01/02/19at 23:42; Start 01/02/19 at 23:00; Stop 01/02/19 at 23:59; Status DC Piperacillin Sod/ Tazobactam Sod 3.375 gm/Sodium Chloride 50 ml @ 100 mls/hr Q6HRS IV Last administered on 01/06/19at 12:09; Start 01/03/19 at 00:00 Vancomycin HCl 2 gm/Sodium Chloride 500 ml @ 250 mls/hr Q24H IV Last administered on 01/05/19at 22:36; Start 01/03/19 at 22:00 Vancomycin HCl (Vancomycin Trough Level) 1 each 1X ONCE MC Last administered on 01/04/19 22:15; Start 01/04/19 at 21:30; Stop 01/04/19 at 21:31; Status DC Atorvastatin Calcium (Lipitor) 20 mg HS PO Last administered on 01/05/19 21:30; Start 01/03/19 at 21:00 Lisinopril (Prinivil) 20 mg HS PO ; Start 01/03/19 at 21:00; Stop 01/04/19 at 14:45; Status DC Metoprolol Succinate (Toprol Xl) 100 mg DAILY PO Last administered on 01/03/19 10:41; Start 01/03/19 at 11:00; Stop 01/05/19 at 18:20; Status DC Amlodipine Besylate (Norvasc) 2.5 mg DAILY PO Last administered on 01/06/19 08:38; Start 01/03/19 at 11:00 Furosemide (Lasix) 20 mg [id number] IVP Last administered on 01/04/19 12:49; Start 01/03/19 at 10:15; Stop 01/04/19 at 14:45; Status DC Magnesium Sulfate 50 ml @ 25 mls/hr 1X ONCE IV Last administered on 01/03/19 11:22; Start 01/03/19 at 11:00; Stop 01/03/19 at 12:59; Status DC Senna/Docusate Sodium (Senna Plus) 2 tab PRN DAILY PRN PO CONSTIPATION; Start 01/04/19 at 11:00; Stop 01/04/19 at 10:55; Status DC Potassium Chloride (Klor-Con) 20 meq [id number] PO Last administered on 01/06/19 08:38; Start 01/04/19 at 11:00 Tamsulosin HCl (Flomax) 0.4 mg QHS PO Last administered on 01/05/19 21:30; Start 01/04/19 at 21:00 Senna/Docusate Sodium (Senna Plus) 2 tab DAILY PO Last administered on 01/06/19 08:38; Start 01/04/19 at 11:00 Furosemide (Lasix) 40 mg DAILY PO Last administered on 01/06/19 08:38; Start 01/05/19 at 09:00 Potassium Chloride (Klor-Con) 20 meq 1X ONCE PO Last administered on 01/04/19 15:00; Start 01/04/19 at 15:00; Stop 01/04/19 at 15:01; Status DC Lactobacillus Rhamnosus (Culturelle) 1 cap BID PO Last administered on 01/06/19 08:38; Start 01/04/19 at 21:00 Acetaminophen (Tylenol) 650 mg PRN Q6HRS PRN PO pain; Start 01/04/19 at 20:15 Tramadol HCl (Ultram) 50 mg PRN Q6HRS PRN PO MODERATE PAIN 4-6 Last administered on 01/06/19 00:26; Start 01/05/19 at 10:30 Metoprolol Succinate (Toprol Xl) 50 mg DAILY PO Last administered on 01/06/19 08:38; Start 01/06/19 at 09:00 Oxybutynin Chloride (Ditropan) 5 mg PRN Q8HRS PRN PO BLADDER SPASM Last administered on 01/05/19 21:30; Start 01/05/19 at 20:15 Active Scripts Active Reported Lisinopril 20 Mg Tablet 1 Tab PO HS Amlodipine Besylate 2.5 Mg Tablet 2.5 Mg PO DAILY Atorvastatin Calcium 20 Mg Tablet 1 Tab PO HS Aspirin 325 Mg Tablet 1 Tab PO DAILY Metoprolol Succinate ( Xl ) (Metoprolol Succinate) 100 Mg Tab.er.24h 1 Tab PO DAILY Allergies Allergies: Coded Allergies: No Known Drug Allergies (Unverified , 06/21/14) ROS General: No: Chills Hematological and Lymphatic: No: Bleeding Problems, Blood Clots, Brusing Respiratory: No: Cough, Hemoptysis, Shortness of breath Gastrointestinal: No Nausea, No Vomiting, No Abdominal Pain, No Diarrhea, No Constipation Genitourinary: No Incontinence, No Other (difficulty initiating) Neurological: No Gait Disturbance Skin: Yes Skin Lesion Changes; No Mottling Physical Exam General: Alert, Oriented X3, Cooperative, No acute distress HEENT: Atraumatic, EOMI Lungs: Clear to auscultation, Normal air movement Heart: Regular rate Abdomen: Normal bowel sounds, Soft, No tenderness, Other (Obese) Extremities: Normal pulses (Radial), Other (Bilateral lower extremity edema 2+, Unable to palpate right pedal pulses likely due to edema, can palpate left dorsalis pedis pulse. Pt was unwilling to move to bed and I was unable to assess femoral pulses due to body habitus and pt sitting in chair. Feet are warm with good cap refill. Good motor function. ) Skin: Other (Bilateral anterior ankles have some mild redness, skin taughtness. Bilateral lower leg swelling. ) Neuro: Normal speech, Normal tone, Sensation intact Psych/Mental Status: Mental status NL, Mood NL Vitals VITALS Vital Signs Date Time Temp Pulse Resp B/P (MAP) Pulse Ox O2 Delivery O2 Flow Rate FiO2 01/06/19 11:00 98.2 78 16 124/82 (96) 95 Room Air 98.2 Labs Labs Laboratory Tests Test 01/04/19 21:40 01/05/19 06:10 Vancomycin Level Trough 15.9 mcg/mL (10.0-20.0) Vancomycin Last Dose Date Unk Vancomycin Last Dose Time Unk White Blood Count 10.8 x10^3/uL (4.0-11.0) Red Blood Count 4.15 x10^6/uL (4.30-5.70) Hemoglobin 11.8 g/dL (13.0-17.5) Hematocrit 36.5 % (39.0-53.0) Mean Corpuscular Volume 88 fL (79-100) Mean Corpuscular Hemoglobin 29 pg (25-35) Mean Corpuscular Hemoglobin Concent 32 g/dL (31-37) Red Cell Distribution Width 16.8 % (11.5-14.5) Platelet Count 309 x10^3/uL (140-400) Neutrophils (%) (Auto) 75 % (31-73) Lymphocytes (%) (Auto) 10 % (24-48) Monocytes (%) (Auto) 8 % (0-9) Eosinophils (%) (Auto) 6 % (0-3) Basophils (%) (Auto) 1 % (0-3) Neutrophils # (Auto) 8.1 x10^3/uL (1.8-7.7) Lymphocytes # (Auto) 1.1 x10^3/uL (1.0-4.8) Monocytes # (Auto) 0.9 x10^3/uL (0.0-1.1) Eosinophils # (Auto) 0.6 x10^3/uL (0.0-0.7) Basophils # (Auto) 0.1 x10^3/uL (0.0-0.2) Sodium Level 141 mmol/L (136-145) Potassium Level 3.7 mmol/L (3.5-5.1) Chloride Level 104 mmol/L (98-107) Carbon Dioxide Level 27 mmol/L (21-32) Anion Gap 10 (6-14) Blood Urea Nitrogen 20 mg/dL (8-26) Creatinine 2.2 mg/dL (0.7-1.3) Estimated GFR (Cockcroft-Gault) 29.3 Glucose Level 102 mg/dL (70-99) Calcium Level 8.8 mg/dL (8.5-10.1) Images Images Reviewed pelvic CT. AAA measured 4.0 cm Rt common iliac artery aneurysm 3.0cm Echo noted ascending aortic dilation at 4 cm Assessment/Plan Assessment/Plan 1) infrarenal abdominal aortic aneurysm measuring 4.0cm on pelvic CT 2) right common iliac artery aneurysm measuring 3.0cm on pelvic CT Pt is asymptomatic, guidelines do not recommend fixing AAA at that size. With the iliac aneurysm at 3.0 cm, we start the discussion and weighing risks/benefits of fixing. This is not urgent. A CTA would likely be needed to further assess exact measurements if plan was to move forward with fixing this. This is not urgent and does not need to be done at this time with the patients elevated creatinine. Recommend treatment and resolution of TERENCE, urinary retention and acute issues and we can repeat scan in 6 months to further assess. He can follow up with us outpatient regarding this. If kidney function does not improve we can use CT noncontrast if needed. Vascular surgeon will see patient as well. Thank you for consult. DAVEY CATHERINE Jan 06, 2019 14:42
[2019-01-06 15:00] VITALS: BP 122/78
[2019-01-06] MEDS: VANCOMYCIN PER PHARMACY MC PRN (15:35)
--- NOTE | 2019-01-06 15:59 | NUR ---
SS following up with discharge planning. SS met with pt to discuss discharge planning. Pt continuing to decline home healthcare and long-term unit. Pt reported that his significant other is an RN and can take care of him. SS will continue to follow for discharge planning.
--- NOTE | 2019-01-06 17:40 | PDOC ---
CARDIOLOGY PROGRESS NOTE SUBJECTIVE: No acute events overnight. No chest pain/dyspnea. LE edema/scrotal swelling slowing improving. OBJECTIVE: Vital Signs/I&O: Vital Signs Date Time Temp Pulse Resp B/P (MAP) Pulse Ox O2 Delivery O2 Flow Rate FiO2 01/06/19 15:00 98.4 78 16 122/78 (93) 94 Room Air 98.4 I & O 01/05/19 01/05/19 01/06/19 14:59 22:59 06:59 Intake Total 1200 ml 550 ml Output Total 1350 ml 475 ml 200 ml Balance -1350 ml 725 ml 350 ml Objective: A/O x 3. NAD RRR, no m/r/g PULM: CTAB ABD: Soft, NT/ND +BS, obese EXT: Trace edema, scrotal swelling improved. CURRENT MEDICATIONS: Toprol XL 50mg daily Lasix 40mg daily Amlodipine 2.5mg daily Atorvastatin 20mg daily DIAGNOSTIC TESTING: No new labs. Cr last 2.2 ASSESSMENT: 1. Acute on chronic diastolic HF - improving 2. Ascending and iliac/abdominal aneurysm - non-surgical currently 3. CKD with TERENCE - improving 4. HTN - stable 5. Dyslipidemia PLAN: 1. Continue current medical therapy and diuresis. 2. Stable for DC from CV standpoint. Will f/u on an outpt basis. Thanks TRELL CHAVEZ MD Jan 06, 2019 17:40
[2019-01-06 19:17] VITALS: BP 119/68
[2019-01-06] MEDS: TAMSULOSIN 0.4 MG CAP.ER.24H. PO SCH (20:56)
[2019-01-06] MEDS: ATORVASTATIN CALCIUM 20 MG TABLET PO SCH (20:56)
[2019-01-06] MEDS: VANCOMYCIN 2 GM in IV NORMAL SALINE 500ML BAG 500 ML IV SCH (21:01)
[2019-01-06 23:11] VITALS: BP 132/79
[2019-01-07 03:00] VITALS: BP 140/78
[2019-01-07] MEDS: PIPERACILLIN/TAZOBACTAM 3.375 GM in IV NORMAL SALINE 50ML 50 ML IV SCH (05:36)
[2019-01-07 05:45] LABS: BASO # 0.1 x10^3/uL (0.0-0.2); BASO % 1 % (0-3); EOS # 0.6 x10^3/uL (0.0-0.7); EOS % 8 % (0-3); HEMATOCRIT 37.2 % (39.0-53.0); HEMOGLOBIN 12.4 g/dL (13.0-17.5); LYMPH % 12 % (24-48); MEAN CORPUSCULAR HEMOGLOBIN 29 pg (25-35); MEAN CORPUSCULAR HGB CONC 33 g/dL (31-37); MEAN CORPUSCULAR VOLUME 88 fL (79-100); MONO # 0.6 x10^3/uL (0.0-1.1); MONO % 7 % (0-9); NEUT # 5.8 x10^3/uL (1.8-7.7); NEUT % 71 % (31-73); PLATELET COUNT 309 x10^3/uL (140-400); RED BLOOD COUNT 4.23 x10^6/uL (4.30-5.70); RED CELL DISTRIBUTION WIDTH 17.2 % (11.5-14.5); WHITE BLOOD COUNT 8.2 x10^3/uL (4.0-11.0)
[2019-01-07 05:48] LABS: CALCIUM 9.3 mg/dL (8.5-10.1); CREATININE 2.3 mg/dL (0.7-1.3); GFR 27.9; POTASSIUM 3.8 mmol/L (3.5-5.1)
[2019-01-07 07:00] VITALS: BP 149/81
[2019-01-07] MEDS: SENNOSIDES/DOCUSATE 8.6/50MG TABLET. PO SCH (09:00)
[2019-01-07] MEDS ORDERED: METO50TA4 PO (09:54)
[2019-01-07] MEDS ORDERED: LACT1CAP19 PO (09:54)
[2019-01-07] MEDS ORDERED: AMOX1TAB58 PO (09:54)
[2019-01-07] MEDS ORDERED: TAMS0.4C97 PO (09:54)
[2019-01-07] MEDS ORDERED: POTA20TA4 PO (09:54)
[2019-01-07] MEDS ORDERED: FURO40TA4 PO (09:54)
--- NOTE | 2019-01-07 09:57 | DISCH ---
DISCHARGE INSTRUCTIONS Condition on Discharge Condition on Discharge: Stable Activity After Discharge Activity Instructions for Disc: Activity as tolerated Diet after Discharge Diet after Discharge: Cardiac Diet Texture: Regular Wound Incision Care Other wound/incision instructi: Keep scrotum elevated and supported Contacting the DRJeff after DC Call your doctor for: Concerns you may have Follow-Up Follow up with: Dr.Pratip Segura in 5 days Follow Up With: Candy Estrada PRATIP B MD Jan 07, 2019 09:57
[2019-01-07] MEDS: LACTOBACILLUS RHAMNOSUS GG 1 CAPSULE. PO SCH (10:07)
[2019-01-07] MEDS: METOPROLOL SUCC 24HR ER 50 MG TAB.ER.24H. PO SCH (10:08)
[2019-01-07] MEDS: amLODIPine BESYLATE 5 MG TABLET PO SCH (10:09)
[2019-01-07] MEDS: POTASSIUM CHLORIDE 20 MEQ TABLET.ER. PO SCH (10:10)
[2019-01-07] MEDS: FUROSEMIDE 40 MG TABLET. PO SCH (10:10)
[2019-01-07 11:00] VITALS: BP 149/81
--- NOTE | 2019-01-07 11:05 | PDOC3 ---
IM DISCHARGE SUMMARY Date of Admission Date of Admission Date of Admission: Jan 02, 2019 at 19:30 Date of Discharge Date of Discharge 01/07/19 Primary Diagnosis Primary Diagnosis 1. Scrotal swelling with cellulitis. 2. Benign prostatic hypertrophy with symptoms of overflow, distention. George catheter was placed. The patient has some bloody tinged urine from trauma. 3. Diastolic Congestive heart failure, new onset. 4. Hypertension. 5. Hyperlipidemia. 6. Chronic kidney disease stage 4 7. AAA 4 cm size 8.Ascending Aortic aneurysm 4 cm 9.Right iliac artey aneurysm 3 cm Consults Consults Abel Ramos MD; Nilda Ochoa MD; Darron Berry MD; Hernan Hodge MD Labs Labs Laboratory Tests Test 01/07/19 05:05 White Blood Count 8.2 x10^3/uL (4.0-11.0) Red Blood Count 4.23 x10^6/uL (4.30-5.70) L Hemoglobin 12.4 g/dL (13.0-17.5) L Hematocrit 37.2 % (39.0-53.0) L Mean Corpuscular Volume 88 fL (79-100) Mean Corpuscular Hemoglobin 29 pg (25-35) Mean Corpuscular Hemoglobin Concent 33 g/dL (31-37) Red Cell Distribution Width 17.2 % (11.5-14.5) H Platelet Count 309 x10^3/uL (140-400) Neutrophils (%) (Auto) 71 % (31-73) Lymphocytes (%) (Auto) 12 % (24-48) L Monocytes (%) (Auto) 7 % (0-9) Eosinophils (%) (Auto) 8 % (0-3) H Basophils (%) (Auto) 1 % (0-3) Neutrophils # (Auto) 5.8 x10^3/uL (1.8-7.7) Lymphocytes # (Auto) 1.0 x10^3/uL (1.0-4.8) Monocytes # (Auto) 0.6 x10^3/uL (0.0-1.1) Eosinophils # (Auto) 0.6 x10^3/uL (0.0-0.7) Basophils # (Auto) 0.1 x10^3/uL (0.0-0.2) Sodium Level 142 mmol/L (136-145) Potassium Level 3.8 mmol/L (3.5-5.1) Chloride Level 106 mmol/L (98-107) Carbon Dioxide Level 25 mmol/L (21-32) Anion Gap 11 (6-14) Blood Urea Nitrogen 19 mg/dL (8-26) Creatinine 2.3 mg/dL (0.7-1.3) H Estimated GFR (Cockcroft-Gault) 27.9 Glucose Level 106 mg/dL (70-99) H Calcium Level 9.3 mg/dL (8.5-10.1) Laboratory Tests 01/07/19 05:05 Laboratory Tests 01/07/19 05:05 Brief hospital course Brief hospital course The patient is a 73-year-old male patient who has a history of hypertension and states he also has problem with prostate on and off and for the last one week, he was having swelling all over the body, extremities, scrotum was swollen. He developed redness and is hard for him to pee, he is dribbling. He came to the Emergency Room and the patient had a CT scan of the pelvis and ultrasound of the scrotum shows a prostate enlargement and a soft tissue infection. He was admitted to the hospital, was given IV antibiotics. George catheter was placed in the Emergency Room. There was bloody tinged urine after that. Urology was consulted. For more details regarding the past history, family history, social history, surgical history and other details, please refer to History and Physical. Scrotal cellulitis - Had a George catheter placed. Urine cultures done, started on vancomycin and Zosyn and Urology was consulted. Pelvic CT 1. Diffuse scrotal soft tissue swelling with subcutaneous edema most suggestive of cellulitis. No CT evidence for Johanna gangrene. 2. Abdominal aortic aneurysm measuring 4.0 x 3.8 cm. 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 3. Prostatomegaly. 4. Small left inguinal hernia containing fat. Also, have a renal consult and a Cardiology consult for heart failure. Echocardiogram and follow up on Lovenox and aspirin for the time being secondary to hematuria . Renal insufficiency- monitor. Creatinine 2.2. Hematuria- ? george cath trauma.Better. Urine c/s negative. Urinary retention- on Flomax.Voiding better without George. Acute on chronic diastolic congestive heart failure- on Lasix,KCL,Lisinopril.Metoprolol decreased to 50 mg daily. Scrotal cellulitis- Responded to IV Zosyn and vancomycin.Augmentin 500/125 bid for 5 days.Improving.D/w patient.Avoid NSAIDS.Scrotal support. Add Tylenol,Tramadol. Cellulitis,diastolic CHF much better. see me in office in 5 days and on .Followup with .Advised salt and fluid restriction as swelling of legs is slightly worse.Weights not accurate- d/w staff. Medications Medications reviewed and reconciled for discharge. Allergy Allergies Coded Allergies Type Severity Reaction Last Updated Verified No Known Drug Allergies 06/21/14 No Follow up in 5 days. DISPOSITION: Home Comments Discharge Management - 35 minutes. For other details please refer to discharge instructions KALIA GARCIA MD Jan 07, 2019 11:05
--- NOTE | 2019-01-07 15:55 | NUR ---
Discharge teaching completed. IV site discontinued without difficulty. Patient has prescriptions in hand and states he understands his discharge teaching, follow up instructions and home medications. He was discharged to home; escorted out via w/c by staff with significant other present.
== END 2019-01-07 12:30 | disposition home or self-care (01) | DRG 682 ==
LOC: ER 16:15 → 4 NORTH 19:30
PROVIDERS: ADMIT Internal Medicine; ATTEND Internal Medicine
DX: N17.9 Acute kidney failure, unspecified (principal); I50.33 Acute on chronic diastolic (congestive) heart failure; I13.0 Hypertensive heart and chronic kidney disease with heart failure and stage 1 through stage 4 chronic kidney disease, or unspecified chronic kidney disease; N49.2 Inflammatory disorders of scrotum; N18.4 Chronic kidney disease, stage 4 (severe); N40.1 Benign prostatic hyperplasia with lower urinary tract symptoms; R32 Unspecified urinary incontinence; R33.8 Other retention of urine; I71.4 Abdominal aortic aneurysm, without rupture; I72.3 Aneurysm of iliac artery; G47.33 Obstructive sleep apnea (adult) (pediatric); G62.9 Polyneuropathy, unspecified; G89.29 Other chronic pain; M19.90 Unspecified osteoarthritis, unspecified site; I87.2 Venous insufficiency (chronic) (peripheral); I25.10 Atherosclerotic heart disease of native coronary artery without angina pectoris; E78.5 Hyperlipidemia, unspecified; I71.2 Thoracic aortic aneurysm, without rupture; R31.9 Hematuria, unspecified; N50.89 Other specified disorders of the male genital organs; Z79.82 Long term (current) use of aspirin; Z80.8 Family history of malignant neoplasm of other organs or systems; Z80.42 Family history of malignant neoplasm of prostate; Z87.891 Personal history of nicotine dependence; Z98.52 Vasectomy status; Z82.49 Family history of ischemic heart disease and other diseases of the circulatory system; Z91.14 Patient's other noncompliance with medication regimen; Z91.19 Patient's noncompliance with other medical treatment and regimen; Z80.3 Family history of malignant neoplasm of breast
CPT/HCPCS: 36415; 71046; 72192; 76770; 76870; 80048; 80053; 80061; 80202; 81001; 83605; 83735; 83880; 84443; 85007; 85025; 87040; 87086; 93005; 93306; 96365; 96367; 96375; J1940; J2543; J3370; J3475; J7030; J7040; J7050; 97110; 97116; 97530; 97535; 99285-25; G0378